=== PATIENT | female | born 1965 | race Two or more races ===

== ENCOUNTER → 2017-02-19 | Outpatient (CLI) | payer BC ==
[~2017-02-19] MED LIST: PIRO-23 PO
[2017-02-19 12:34] LABS: Basophils # (auto) 0 uL; Basophils % (auto) 0.7 % (0.0-2.0); Eosinophils # (auto) 0.1 uL; Eosinophils % (auto) 2.9 % (0.0-7.0); Hematocrit 42.6 % (36.0-46.0); Hemoglobin 14.4 g/dL (12.2-16.2); Lymphocytes # (auto) 1.2 uL; Lymphocytes % (auto) 26.3 % (10.0-50.0); Mean Corpuscular Hemoglobin 30.5 pg (28.0-32.0); Mean Corpuscular Hgb Conc. 33.8 g/dL (32.0-36.0); Mean Platelet Volume 8.7 fL (7.4-10.4); Monocytes # (auto) 0.6 uL; Monocytes % (auto) 14.6 % (0.0-12.0); Neutrophils # (auto) 2.5 uL; Neutrophils % (auto) 55.5 % (37.0-80.0); Platelet Count (auto) 225 10^3/uL (140-450); Red Cell Distribution Width 12.9 % (11.6-16.0); White Blood Cell 4.4 10^3/uL (4.4-10.8)
[2017-02-19 13:05] LABS: Albumin 4.3 g/dL (3.4-5.0); Bilirubin, Total 0.5 mg/dL (0.2-1.0); Potassium 4.3 mmol/L (3.5-5.1); Total Protein 7.8 g/dL (6.4-8.2)
[2017-02-19 13:11] LABS: Urine Bilirubin Negative (Negative); Urine Blood Negative /uL (Negative); Urine Color Yellow (Yellow); Urine Glucose Normal (Normal); Urine Ketone Negative (Negative); Urine Mucus FEW (None Seen); Urine Nitrite Negative (Negative); Urine RBC <1 /hpf (0 - 4); Urine Squamous Epithelial Cell FEW /hpf (<5); Urine Urobilinogen Normal (Negative); Urine pH 5.5 (5.0-8.0)
== END | disposition home or self-care (01) ==
LOC: LAB 11:50
DX: Z83.3 Family history of diabetes mellitus (principal); K63.5 Polyp of colon; Z11.59 Encounter for screening for other viral diseases
CPT/HCPCS: 36415; 80053; 80061; 81001; 83036; 84443; 85025; 86704; 86706; 86708; 86803; 87340

== ENCOUNTER → 2017-02-25 | Outpatient (CLI) | payer BC | END | disposition home or self-care (01) | LOC: LAB 13:50 | DX: Z85.3 Personal history of malignant neoplasm of breast (principal); K63.5 Polyp of colon; Z83.3 Family history of diabetes mellitus; Z11.59 Encounter for screening for other viral diseases | CPT/HCPCS: 82270 ==

== ENCOUNTER → 2017-09-03 | Outpatient (CLI) | payer BC ==
[2017-09-03 12:13] LABS: Urine Bilirubin Negative (Negative); Urine Blood Negative /uL (Negative); Urine Color Yellow (Yellow); Urine Glucose Normal (Normal); Urine Ketone Negative (Negative); Urine Mucus FEW (None Seen); Urine Nitrite Negative (Negative); Urine RBC 1 /hpf (0 - 4); Urine Squamous Epithelial Cell FEW /hpf (<5); Urine Urobilinogen Normal (Negative)
[2017-09-03 13:22] LABS: Basophils # (auto) 0 uL; Basophils % (auto) 0.8 % (0.0-2.0); Eosinophils # (auto) 0.1 uL; Eosinophils % (auto) 2.5 % (0.0-7.0); Hematocrit 45.9 % (36.0-46.0); Hemoglobin 15.7 g/dL (12.2-16.2); Lymphocytes # (auto) 1.9 uL; Lymphocytes % (auto) 32.3 % (10.0-50.0); Mean Corpuscular Hgb Conc. 34.1 g/dL (32.0-36.0); Mean Corpuscular Volume 90.7 fL (80.0-100.0); Mean Platelet Volume 8.2 fL (6.9-10.8); Monocytes # (auto) 0.4 uL; Monocytes % (auto) 7.7 % (0.0-12.0); Neutrophils # (auto) 3.3 uL; Neutrophils % (auto) 56.7 % (37.0-80.0); Platelet Count (auto) 230 10^3/uL (140-450); Red Cell Distribution Width 12.3 % (11.8-14.3); White Blood Cell 5.8 10^3/uL (4.4-10.8)
[2017-09-03 16:08] LABS: Albumin 4.6 g/dL (3.4-5.0); BUN/Creatinine Ratio 22.7; Bilirubin, Total 0.8 mg/dL (0.2-1.0); Calcium 9.4 mg/dL (8.5-10.1); Potassium 3.9 mmol/L (3.5-5.1)
[2017-09-03 16:46] LABS: Temperature: 23.1 C (20.0-25.0)
== END | disposition home or self-care (01) ==
LOC: LAB 11:25
PROVIDERS: ATTEND Nurse Practitioner
DX: E78.5 Hyperlipidemia, unspecified (principal); Z79.899 Other long term (current) drug therapy
CPT/HCPCS: 36415; 80053; 80061; 81001; 82306; 82607; 82728; 82746; 83036; 85025; 86431

== ENCOUNTER → 2017-10-29 | Outpatient (CLI) | payer BC ==
[2017-10-29 15:58] LABS: Basophils # (auto) 0 uL; Basophils % (auto) 0.5 % (0.0-2.0); Eosinophils # (auto) 0.1 uL; Eosinophils % (auto) 2.3 % (0.0-7.0); Hematocrit 41.6 % (36.0-46.0); Hemoglobin 14.5 g/dL (12.2-16.2); Lymphocytes # (auto) 1.4 uL; Lymphocytes % (auto) 23.9 % (10.0-50.0); Mean Corpuscular Hemoglobin 31.5 pg (28.0-32.0); Mean Corpuscular Hgb Conc. 34.8 g/dL (32.0-36.0); Mean Corpuscular Volume 90.5 fL (80.0-100.0); Mean Platelet Volume 8.2 fL (6.9-10.8); Monocytes # (auto) 0.6 uL; Monocytes % (auto) 9.4 % (0.0-12.0); Neutrophils # (auto) 3.8 uL; Neutrophils % (auto) 63.9 % (37.0-80.0); Platelet Count (auto) 191 10^3/uL (140-450); Red Cell Distribution Width 12.5 % (11.8-14.3); White Blood Cell 5.9 10^3/uL (4.4-10.8)
[2017-10-29 16:07] LABS: Urine Bilirubin Negative (Negative); Urine Blood Negative /uL (Negative); Urine Color Yellow (Yellow); Urine Glucose Normal (Normal); Urine Ketone Negative (Negative); Urine Nitrite Negative (Negative); Urine RBC <1 /hpf (0 - 4); Urine Urobilinogen Normal (Negative); Urine pH 5.5 (5.0-8.0)
[2017-10-29 16:25] LABS: Albumin 4.2 g/dL (3.4-5.0); BUN/Creatinine Ratio 33.9; Bilirubin, Total 0.4 mg/dL (0.2-1.0); Calcium 8.8 mg/dL (8.5-10.1); Potassium 3.8 mmol/L (3.5-5.1); Total Protein 7.5 g/dL (6.4-8.2)
== END | disposition home or self-care (01) ==
LOC: LAB 14:56
PROVIDERS: ATTEND Nurse Practitioner
DX: M79.1 Myalgia (principal); M54.5 Low back pain
CPT/HCPCS: 36415; 80053; 81001; 82306; 84439; 84443; 84481; 85025; 85652; 86038; 86141

== ENCOUNTER → 2018-02-08 | Outpatient (CLI) | payer BC ==
[2018-02-08 14:38] LABS: % Iron Saturation 22.2 % (15-50)
== END | disposition home or self-care (01) ==
LOC: LAB 12:28
PROVIDERS: ATTEND Psychiatry & Neurology Neurology
DX: E61.1 Iron deficiency (principal)
CPT/HCPCS: 83540; 83550

== ENCOUNTER → 2018-03-28 | Outpatient (CLI) | payer BC ==
[2018-03-28 13:33] LABS: Albumin 4.4 g/dL (3.4-5.0); Bilirubin, Direct 0.2 mg/dL (0-0.2); Bilirubin, Total 0.7 mg/dL (0.2-1.0); Total Protein 7.5 g/dL (6.4-8.2)
== END | disposition home or self-care (01) ==
LOC: LAB 12:36
PROVIDERS: ATTEND Internal Medicine Gastroenterology
DX: R74.8 Abnormal levels of other serum enzymes (principal); E78.5 Hyperlipidemia, unspecified; Z85.3 Personal history of malignant neoplasm of breast; Z79.899 Other long term (current) drug therapy
CPT/HCPCS: 36415; 80076

== ENCOUNTER → 2018-05-23 | Outpatient (CLI) | payer BC ==
[2018-05-23 12:17] LABS: Follicle Stimulating Hormone 109.3 IU/L (SEE BELOW); Hepatitis B Surface Antibody Positive; Leuteinizing Hormone 51.9 IU/L
[2018-05-23 12:55] LABS: Hepatitis A Total Antibody Positive
[2018-05-23 13:46] LABS: Hepatitis B Surface Antigen Negative (Negative); Hepatitis C Antibody Negative (Negative)
[2018-05-23 14:10] LABS: Hepatitis B Core Total AB Negative
[2018-05-24 04:07] LABS: RPR Non Reactive (Non Reactive)
== END | disposition home or self-care (01) ==
LOC: LAB 10:49
PROVIDERS: ATTEND Family Medicine
DX: Z11.3 Encounter for screening for infections with a predominantly sexual mode of transmission (principal); K76.0 Fatty (change of) liver, not elsewhere classified; R74.8 Abnormal levels of other serum enzymes; E78.5 Hyperlipidemia, unspecified; N95.1 Menopausal and female climacteric states; Z85.3 Personal history of malignant neoplasm of breast; Z79.899 Other long term (current) drug therapy; Z20.2 Contact with and (suspected) exposure to infections with a predominantly sexual mode of transmission
CPT/HCPCS: 36415; 82670; 83001; 83002; 86592; 86695; 86696; 86703; 86704; 86706; 86708; 86803; 87340

== ENCOUNTER 2018-05-29 21:41 | Emergency (ER) | payer BC ==
[~2018-05-29] VITALS: Ht 152.4 cm; Wt 54.4 kg
[2018-05-29 22:03] VITALS: BP 131/52
[2018-05-29 22:43] LABS: Basophils # (auto) 0.1 uL; Eosinophils # (auto) 0.2 uL; Eosinophils % (auto) 2.7 % (0.0-7.0); Hematocrit 40.4 % (36.0-46.0); Hemoglobin 13.9 g/dL (12.2-16.2); Lymphocytes # (auto) 2.1 uL; Lymphocytes % (auto) 37.2 % (10.0-50.0); Mean Corpuscular Hemoglobin 31.1 pg (28.0-32.0); Mean Corpuscular Hgb Conc. 34.4 g/dL (32.0-36.0); Mean Corpuscular Volume 90.5 fL (80.0-100.0); Monocytes # (auto) 0.6 uL; Monocytes % (auto) 10.6 % (0.0-12.0); Neutrophils # (auto) 2.6 uL; Neutrophils % (auto) 47.5 % (37.0-80.0); Platelet Count (auto) 221 10^3/uL (140-450); Red Blood Cells 4.46 10^6/uL (4.0-5.20); Red Cell Distribution Width 12.9 % (11.8-14.3); White Blood Cell 5.6 10^3/uL (4.4-10.8)
[2018-05-29 22:48] LABS: Urine Bacteria NONE SEEN /hpf (None Seen); Urine Blood Negative /uL (Negative); Urine Mucus FEW (None Seen); Urine Specific Gravity 1.031 (1.001-1.035); Urine WBC 5 /hpf (0 - 5)
[2018-05-29 22:58] LABS: Partial Thromboplastin Time 26.1 sec (23.78-33.04); Prothrombin Time 10.7 sec (9.27-12.13)
[2018-05-29 23:06] LABS: Albumin 3.9 g/dL (3.4-5.0); BUN/Creatinine Ratio 34.4; Bilirubin, Total 0.3 mg/dL (0.2-1.0); Calcium 8.5 mg/dL (8.5-10.1); Potassium 3.6 mmol/L (3.5-5.1); Total Protein 6.9 g/dL (6.4-8.2)
== END 2018-05-30 01:00 | disposition left against medical advice (07) ==
LOC: ER 21:41
DX: R10.9 Unspecified abdominal pain (principal); Z53.21 Procedure and treatment not carried out due to patient leaving prior to being seen by health care provider
CPT/HCPCS: 36415; 74176; 80053; 81001; 82150; 83690; 85025; 85610; 85730

== ENCOUNTER → 2018-08-03 | Outpatient (CLI) | payer BC ==
[2018-08-04 06:05] LABS: RPR Non Reactive (Non Reactive)
[2018-08-04 10:03] LABS: Hepatitis B Surface Antibody Positive
[2018-08-04 10:41] LABS: Hepatitis A Total Antibody Positive
[2018-08-04 11:14] LABS: Hepatitis B Core Total AB Negative; Hepatitis B Surface Antigen Negative (Negative)
[2018-08-04 11:15] LABS: Hepatitis C Antibody Positive (Negative)
== END | disposition home or self-care (01) ==
LOC: LAB 09:20
PROVIDERS: ATTEND Physician Assistant
DX: Z11.3 Encounter for screening for infections with a predominantly sexual mode of transmission (principal)
CPT/HCPCS: 36415; 86592; 86703; 86704; 86706; 86708; 86803; 87340

== ENCOUNTER → 2018-08-06 | Emergency (ER) | payer BC | END | disposition left against medical advice (07) | LOC: ER 01:18 | DX: R52 Pain, unspecified (principal); Z53.21 Procedure and treatment not carried out due to patient leaving prior to being seen by health care provider ==

== ENCOUNTER → 2018-08-09 | Outpatient (CLI) | payer BC | END | disposition home or self-care (01) | LOC: LAB 10:48 | PROVIDERS: ATTEND Nurse Practitioner | DX: Z11.3 Encounter for screening for infections with a predominantly sexual mode of transmission (principal) | CPT/HCPCS: 86703; 87522 ==

== ENCOUNTER → 2018-11-15 | Outpatient (CLI) | payer BC ==
[2018-11-15 11:02] LABS: Albumin 4.5 g/dL (3.4-5.0); Bilirubin, Direct 0.2 mg/dL (0-0.2)
[2018-11-15 11:04] LABS: % Iron Saturation 45.8 % (15-50)
[2018-11-15 11:05] LABS: Bilirubin, Total 0.5 mg/dL (0.2-1.0); Total Protein 7.7 g/dL (6.4-8.2)
== END | disposition home or self-care (01) ==
LOC: LAB 09:53
PROVIDERS: ATTEND Internal Medicine Gastroenterology
DX: K92.1 Melena (principal)
CPT/HCPCS: 36415; 80076; 82390; 83540; 83550; 86225

== ENCOUNTER → 2018-12-22 | Outpatient (CLI) | payer BC ==
[2018-12-22 10:31] LABS: Basophils # (auto) 0 uL; Basophils % (auto) 0.4 % (0.0-2.0); Eosinophils # (auto) 0.2 uL; Eosinophils % (auto) 2.7 % (0.0-7.0); Hematocrit 44.6 % (36.0-46.0); Hemoglobin 15.3 g/dL (12.2-16.2); Lymphocytes # (auto) 1.2 uL; Lymphocytes % (auto) 20.6 % (10.0-50.0); Mean Corpuscular Hemoglobin 31.5 pg (28.0-32.0); Mean Corpuscular Hgb Conc. 34.2 g/dL (32.0-36.0); Monocytes # (auto) 0.4 uL; Monocytes % (auto) 7.4 % (0.0-12.0); Neutrophils % (auto) 68.9 % (37.0-80.0); Platelet Count (auto) 183 10^3/uL (140-450); Red Blood Cells 4.85 10^6/uL (4.0-5.20); Red Cell Distribution Width 12.6 % (11.8-14.3); White Blood Cell 5.8 10^3/uL (4.4-10.8)
[2018-12-22 10:47] LABS: Urine Bacteria NONE SEEN /hpf (None Seen); Urine Blood TRACE /uL (Negative); Urine Mucus FEW (None Seen); Urine Specific Gravity 1.028 (1.001-1.035); Urine WBC 1 /hpf (0 - 5)
[2018-12-22 11:27] LABS: Albumin 4.3 g/dL (3.4-5.0); Anion Gap 4 (5-15); Blood Urea Nitrogen 32 mg/dL (7-18); Calcium 9.1 mg/dL (8.5-10.1); Carbon Dioxide 28 mmol/L (21-32); Chloride 108 mmol/L (98-107); Glucose 101 mg/dL (74-106); Potassium 4.2 mmol/L (3.5-5.1); Sodium 140 mmol/L (136-145)
[2018-12-22 11:31] LABS: Alanine Aminotransferase 38 U/L (13-56); Alkaline Phosphatase 105 U/L (45-117); Aspartate Aminotransferase 20 U/L (15-37); Bilirubin, Total 0.4 mg/dL (0.2-1.0); Cholesterol 176 mg/dL (< 200); GFR African American > 60 mL/min; GFR Non-African American > 60 mL/min; HDL Cholesterol 37 mg/dL (40-59); LDL Cholesterol 132 mg/dL (< 100); Total Protein 7.5 g/dL (6.4-8.2); Triglycerides 90 mg/dL (< 150)
== END | disposition home or self-care (01) ==
LOC: LAB 09:56
PROVIDERS: ATTEND Nurse Practitioner
DX: E78.5 Hyperlipidemia, unspecified (principal)
CPT/HCPCS: 36415; 80053; 80061; 81001; 82306; 83036; 84443; 85025

== ENCOUNTER → 2019-12-22 | Outpatient (CLI) | payer BC ==
[2019-12-22 09:44] LABS: Basophils # (auto) 0 uL; Basophils % (auto) 0.6 % (0.0-2.0); Eosinophils # (auto) 0.2 uL; Eosinophils % (auto) 2.4 % (0.0-7.0); Hematocrit 42.7 % (36.0-46.0); Hemoglobin 14.6 g/dL (12.2-16.2); Lymphocytes # (auto) 1.5 uL; Mean Corpuscular Hemoglobin 30.9 pg (28.0-32.0); Mean Corpuscular Hgb Conc. 34.2 g/dL (32.0-36.0); Mean Corpuscular Volume 90.4 fL (80.0-100.0); Monocytes # (auto) 0.5 uL; Neutrophils # (auto) 4.5 uL; Platelet Count (auto) 241 10^3/uL (140-450); Red Blood Cells 4.72 10^6/uL (4.0-5.20); Red Cell Distribution Width 12.5 % (11.8-14.3); White Blood Cell 6.7 10^3/uL (4.4-10.8)
[2019-12-22 09:47] LABS: Urine Bacteria NONE SEEN /hpf (None Seen); Urine Blood Negative /uL (Negative); Urine Mucus FEW (None Seen); Urine Specific Gravity 1.024 (1.001-1.035); Urine WBC 24 /hpf (0 - 5)
[2019-12-22 10:06] LABS: Albumin 3.8 g/dL (3.4-5.0); Calcium 9.2 mg/dL (8.5-10.1); Potassium 4.5 mmol/L (3.5-5.1)
[2019-12-22 10:16] LABS: BUN/Creatinine Ratio 34.8; Bilirubin, Total 0.4 mg/dL (0.2-1.0); Total Protein 7.5 g/dL (6.4-8.2)
== END | disposition home or self-care (01) ==
LOC: LAB 09:17
PROVIDERS: ATTEND Nurse Practitioner
DX: E78.5 Hyperlipidemia, unspecified (principal)
CPT/HCPCS: 36415; 80053; 80061; 81001; 84443; 85025

== ENCOUNTER → 2020-06-17 | Outpatient (CLI) | payer BC | END | disposition home or self-care (01) | LOC: LAB 14:43 | PROVIDERS: ATTEND Specialist | DX: N93.9 Abnormal uterine and vaginal bleeding, unspecified (principal) | CPT/HCPCS: 87086 ==

== ENCOUNTER → 2020-08-23 | Outpatient (CLI) | payer BC ==
[2020-08-23 13:33] LABS: Urine Bacteria NONE SEEN /hpf (None Seen); Urine Blood Negative /uL (Negative); Urine Specific Gravity 1.001 (1.001-1.035); Urine WBC <1 /hpf (0 - 5)
== END | disposition home or self-care (01) ==
LOC: LAB 13:07
PROVIDERS: ATTEND Nurse Practitioner
DX: N39.0 Urinary tract infection, site not specified (principal)
CPT/HCPCS: 81001; 87086

== ENCOUNTER → 2020-09-02 | Outpatient (CLI) | payer BC | END | disposition home or self-care (01) | LOC: LAB 17:38 | PROVIDERS: ATTEND Urology | DX: N39.0 Urinary tract infection, site not specified (principal) | CPT/HCPCS: 87086; 87088; 87186 ==

== ENCOUNTER → 2021-11-13 | Outpatient (CLI) | payer BC ==
[~2021-11-13] MED LIST changes: -PIRO-23 PO; +PIRO20CA PO
[2021-11-13 10:11] LABS: Basophils # (auto) 0 10 ^3/uL (0-0.2); Basophils % (auto) 0.7 % (0.0-2.0); Eosinophils # (auto) 0.2 10 ^3/uL (0-0.8); Eosinophils % (auto) 3.2 % (0.0-7.0); Hematocrit 42.6 % (36.0-46.0); Hemoglobin 14.3 g/dL (12.2-16.2); Lymphocytes # (auto) 1.4 10 ^3/uL (0.4-5.4); Lymphocytes % (auto) 27.9 % (10.0-50.0); Mean Corpuscular Hemoglobin 30.6 pg (28.0-32.0); Mean Corpuscular Hgb Conc. 33.7 g/dL (32.0-36.0); Mean Corpuscular Volume 90.8 fL (80.0-100.0); Monocytes # (auto) 0.5 10 ^3/uL (0-1.3); Monocytes % (auto) 9.1 % (0.0-12.0); Neutrophils # (auto) 2.9 10 ^3/uL (1.6-8.6); Neutrophils % (auto) 59.1 % (37.0-80.0); Nucleated Red Blood Cells % 0.1 %; Red Blood Cells 4.69 10^6/uL (4.0-5.20); Red Cell Distribution Width 12.5 % (11.8-14.3)
[2021-11-13 10:21] LABS: Urine Bacteria NONE SEEN /hpf (None Seen); Urine Blood Negative /uL (Negative); Urine Mucus FEW (None Seen); Urine Specific Gravity 1.024 (1.001-1.035); Urine WBC 11 /hpf (0 - 5)
[2021-11-13 11:40] LABS: Albumin 4.5 g/dL (3.4-5.0); BUN/Creatinine Ratio 34.8; Bilirubin, Total 0.7 mg/dL (0.2-1.0); Calcium 9.2 mg/dL (8.5-10.1); Total Protein 7.4 g/dL (6.4-8.2)
== END | disposition home or self-care (01) ==
LOC: LAB 09:47
PROVIDERS: ATTEND Student in an Organized Health Care Education/Training Program
DX: K76.0 Fatty (change of) liver, not elsewhere classified (principal); R76.8 Other specified abnormal immunological findings in serum; R73.9 Hyperglycemia, unspecified; I10 Essential (primary) hypertension; M25.50 Pain in unspecified joint
CPT/HCPCS: 36415; 80053; 80061; 81001; 83001; 83036; 84443; 85025; 86431; 86803

== ENCOUNTER 2022-06-19 12:02 | Day surgery (SDC) | payer BC ==
[2022-06-17 10:03] LABS: Albumin 4.1 g/dL (3.4-5.0); Calcium 9.1 mg/dL (8.5-10.1); Potassium 4.3 mmol/L (3.5-5.1)
[2022-06-17 10:04] LABS: Basophils # (auto) 0 10 ^3/uL (0-0.2); Basophils % (auto) 0.9 % (0.0-2.0); Eosinophils # (auto) 0.2 10 ^3/uL (0-0.8); Eosinophils % (auto) 3.4 % (0.0-7.0); Lymphocytes # (auto) 1.5 10 ^3/uL (0.4-5.4); Mean Corpuscular Hemoglobin 30.2 pg (28.0-32.0); Mean Corpuscular Hgb Conc. 33.3 g/dL (32.0-36.0); Mean Corpuscular Volume 90.9 fL (80.0-100.0); Monocytes # (auto) 0.5 10 ^3/uL (0-1.3); Monocytes % (auto) 9.6 % (0.0-12.0); Neutrophils # (auto) 3.3 10 ^3/uL (1.6-8.6); Neutrophils % (auto) 59.1 % (37.0-80.0); Red Blood Cells 4.62 10^6/uL (4.0-5.20); Red Cell Distribution Width 12.8 % (11.8-14.3); White Blood Cell 5.5 10^3/uL (4.4-10.8)
[2022-06-17 10:07] LABS: Bilirubin, Total 0.4 mg/dL (0.2-1.0); Total Protein 7.4 g/dL (6.4-8.2)
[2022-06-17 10:18] LABS: INR 0.96 (0.9-1.15); Partial Thromboplastin Time 26.6 sec (24.6-33.4)
[~2022-06-19] VITALS: Ht 152.4 cm; Wt 53.1 kg
[2022-06-19] MEDS ORDERED: SODIUM CHLORIDE LOCK 10 ML ONE (12:29)
[2022-06-19] MEDS ORDERED: LIDOCAINE VISCOUS 2% 15ML UD ONE (12:29)
[2022-06-19] MEDS ORDERED: MIDAZOLAM HCL 5 MG/ML-1ML VIAL ONE (12:29)
[2022-06-19] MEDS ORDERED: diphenhdrAMINE HCL 50 MG/1 ML VL ONE (12:30)
[2022-06-19] MEDS ORDERED: fentaNYL CITRATE 100 MCG/2 ML VL ONE ×2 (12:30→13:37)
[2022-06-19] MEDS ORDERED: MEPERIDINE HCL (25 MG/ML) 1ML VIAL ONE (13:36)
[2022-06-19] MEDS ORDERED: MIDAZOLAM HCL 2MG/2ML 2ml VIAL (1mg/ml) ONE (13:37)
[2022-06-19] MEDS ORDERED: DexAMETHasone SOD PHOS 10MG/1ML VIAL INJ ONE (13:46)
[2022-06-19] MEDS ORDERED: PROPOFOL 10 MG/ML 20 ML IV ONE (13:52)
[2022-06-19 15:01] VITALS: BP 113/64
== END 2022-06-19 15:30 | disposition home or self-care (01) ==
LOC: GI 12:02
PROVIDERS: ATTEND Internal Medicine Gastroenterology
DX: Z12.11 Encounter for screening for malignant neoplasm of colon (principal); D12.3 Benign neoplasm of transverse colon; D12.5 Benign neoplasm of sigmoid colon; K64.8 Other hemorrhoids; K29.50 Unspecified chronic gastritis without bleeding; K29.80 Duodenitis without bleeding; K31.89 Other diseases of stomach and duodenum; G89.29 Other chronic pain; Z86.010 Personal history of colon polyps; Z80.0 Family history of malignant neoplasm of digestive organs; Z98.891 History of uterine scar from previous surgery; Z98.890 Other specified postprocedural states; Z79.899 Other long term (current) drug therapy; Z88.0 Allergy status to penicillin; Z88.2 Allergy status to sulfonamides; Z20.822 Contact with and (suspected) exposure to COVID-19
CPT/HCPCS: 36415; 43239; 45380; 80053; 85025; 85610; 85730; J1100; J2175; J2250; J2704; J3010; J7030; U0003; 99152

== ENCOUNTER → 2023-10-15 | Outpatient (CLI) | payer BC ==
[2023-10-15 13:58] LABS: Basophils # (auto) 0 10 ^3/uL (0-0.2); Basophils % (auto) 0.8 % (0.0-2.0); Eosinophils # (auto) 0.2 10 ^3/uL (0-0.8); Eosinophils % (auto) 2.6 % (0.0-7.0); Hematocrit 42.5 % (36.0-46.0); Hemoglobin 14.5 g/dL (12.2-16.2); Lymphocytes # (auto) 1.7 10 ^3/uL (0.4-5.4); Lymphocytes % (auto) 28.2 % (10.0-50.0); Mean Corpuscular Hemoglobin 30.6 pg (28.0-32.0); Mean Corpuscular Hgb Conc. 34.1 g/dL (32.0-36.0); Mean Corpuscular Volume 89.6 fL (80.0-100.0); Monocytes # (auto) 0.4 10 ^3/uL (0-1.3); Monocytes % (auto) 7.2 % (0.0-12.0); Neutrophils # (auto) 3.6 10 ^3/uL (1.6-8.6); Neutrophils % (auto) 61.2 % (37.0-80.0); Nucleated Red Blood Cells % 0.2 %; Red Blood Cells 4.75 10^6/uL (4.0-5.20); Red Cell Distribution Width 12.8 % (11.8-14.3); White Blood Cell 5.9 10^3/uL (4.4-10.8)
[2023-10-15 14:02] LABS: Urine Bacteria NONE SEEN /hpf (None Seen); Urine Blood Negative /uL (Negative); Urine Clarity Clear (Clear); Urine Color Yellow (Yellow); Urine Protein, UAD Negative (Negative); Urine Specific Gravity 1.018 (1.001-1.035); Urine Urobilinogen Normal (Negative); Urine WBC 2 /hpf (0 - 5)
[2023-10-15 14:40] LABS: Alanine Aminotransferase 49 U/L (7-40); Albumin 4.6 g/dL (3.2-4.8); Alkaline Phosphatase 109 U/L (46-116); Anion Gap 5 (5-15); Aspartate Aminotransferase 24 U/L (13-40); BUN/Creatinine Ratio 14.8 (10.0-20.0); Blood Urea Nitrogen 12 mg/dL (9-23); Calcium 9.4 mg/dL (8.5-10.1); Carbon Dioxide 30 mmol/L (20-30); Chloride 106 mmol/L (98-107); Glucose 123 mg/dL (74-106); LDL Cholesterol 124 mg/dL (< 100); Potassium 3.9 mmol/L (3.5-5.1); Sodium 141 mmol/L (136-145); Triglycerides 107 mg/dL (< 150)
[2023-10-15 14:41] LABS: Bilirubin, Total 0.7 mg/dL (0.2-1.0); Cholesterol 164 mg/dL (< 200); HDL Cholesterol 38 mg/dL (40-59)
[2023-10-15 14:42] LABS: Free T4 (Free Thyroxine) 1.01 ng/dL (0.89-1.76)
== END | disposition home or self-care (01) ==
LOC: LAB 13:34
DX: Z00.01 Encounter for general adult medical examination with abnormal findings (principal); C65.9 Malignant neoplasm of unspecified renal pelvis; R74.8 Abnormal levels of other serum enzymes
CPT/HCPCS: 36415; 80053; 80061; 81001; 82607; 83036; 84439; 84443; 85025

== ENCOUNTER → 2024-02-11 | Outpatient (CLI) | payer BC ==
[2024-02-11 12:50] LABS: Basophils # (auto) 0 10 ^3/uL (0-0.2); Basophils % (auto) 0.7 % (0.0-2.0); Eosinophils # (auto) 0.2 10 ^3/uL (0-0.8); Eosinophils % (auto) 2.7 % (0.0-7.0); Hematocrit 42.6 % (36.0-46.0); Hemoglobin 14.5 g/dL (12.2-16.2); Lymphocytes # (auto) 1.4 10 ^3/uL (0.4-5.4); Lymphocytes % (auto) 23.1 % (10.0-50.0); Mean Corpuscular Hemoglobin 30.9 pg (28.0-32.0); Mean Corpuscular Hgb Conc. 34.1 g/dL (32.0-36.0); Mean Corpuscular Volume 90.5 fL (80.0-100.0); Monocytes # (auto) 0.4 10 ^3/uL (0-1.3); Monocytes % (auto) 6.9 % (0.0-12.0); Neutrophils % (auto) 66.6 % (37.0-80.0); Nucleated Red Blood Cells % 0.1 %; Red Blood Cells 4.71 10^6/uL (4.0-5.20); Red Cell Distribution Width 13.1 % (11.8-14.3); White Blood Cell 6.1 10^3/uL (4.4-10.8)
[2024-02-11 12:59] LABS: Urine Bacteria FEW /hpf (None Seen); Urine Blood Negative /uL (Negative); Urine Clarity Clear (Clear); Urine Color Yellow (Yellow); Urine Mucus FEW (None Seen); Urine Protein, UAD Negative (Negative); Urine Specific Gravity 1.024 (1.001-1.035); Urine Urobilinogen Normal (Negative); Urine WBC 12 /hpf (0 - 5)
[2024-02-11 13:13] LABS: Alanine Aminotransferase 49 U/L (7-40); Albumin 4.7 g/dL (3.2-4.8); Alkaline Phosphatase 122 U/L (46-116); Anion Gap 4 (5-15); Aspartate Aminotransferase 26 U/L (13-40); BUN/Creatinine Ratio 22.7 (10.0-20.0); Bilirubin, Total 0.7 mg/dL (0.2-1.0); Blood Urea Nitrogen 17 mg/dL (9-23); Calcium 9.7 mg/dL (8.5-10.1); Carbon Dioxide 30 mmol/L (20-30); Chloride 107 mmol/L (98-107); Cholesterol 162 mg/dL (< 200); Glucose 99 mg/dL (74-106); HDL Cholesterol 45 mg/dL (40-59); LDL Cholesterol 123 mg/dL (< 100); Potassium 4.4 mmol/L (3.5-5.1); Sodium 141 mmol/L (136-145); Triglycerides 54 mg/dL (< 150)
[2024-02-12 08:06] LABS: Rheumatoid Arthritis Factor <10.0 IU/mL (<14.0)
[2024-02-12 13:06] LABS: Anti-Nuclear Antibody Direct Negative (Negative)
== END | disposition home or self-care (01) ==
LOC: LAB 12:11
PROVIDERS: ATTEND Student in an Organized Health Care Education/Training Program
DX: R03.0 Elevated blood-pressure reading, without diagnosis of hypertension (principal); R73.9 Hyperglycemia, unspecified; R76.8 Other specified abnormal immunological findings in serum; M25.511 Pain in right shoulder
CPT/HCPCS: 36415; 80053; 80061; 81001; 84443; 85025; 86038; 86431

== ENCOUNTER → 2024-07-27 | Outpatient (CLI) | payer BC | END | disposition home or self-care (01) | LOC: XYW 08:46 | PROVIDERS: ATTEND Student in an Organized Health Care Education/Training Program | DX: I51.89 Other ill-defined heart diseases (principal); R07.9 Chest pain, unspecified | CPT/HCPCS: 93306 ==

== ENCOUNTER → 2025-01-08 | Outpatient (CLI) | payer BC ==
[2025-01-08 16:04] LABS: Urine Bacteria None Seen /hpf (None Seen)
[2025-01-08 16:21] LABS: Urine Blood Negative /uL (Negative); Urine Clarity Clear (Clear); Urine Color Yellow (Yellow); Urine Hyaline Cast FEW /lpf (0 - 2); Urine Mucus FEW (None Seen); Urine Protein, UAD Negative (Negative); Urine Specific Gravity 1.026 (1.001-1.035); Urine Squamous Epithelial Cell FEW /hpf (<5); Urine Urobilinogen Normal (Negative); Urine WBC < 1 /HPF (0-5); Urine pH 5.5 (5.0-9.0)
[2025-01-09 08:06] LABS: HSV 1 IgG Antibody Reactive (Non Reactive); HSV 2 IgG Antibody Non Reactive (Non Reactive); RPR Non Reactive (Non Reactive)
[2025-01-09 12:06] LABS: Chlamydia Trachomatis, NAA Negative (Negative); Neisseria gonorrhoeae, NAA Negative (Negative)
== END | disposition home or self-care (01) ==
LOC: LAB 15:23
PROVIDERS: ATTEND Nurse Practitioner
DX: Z11.3 Encounter for screening for infections with a predominantly sexual mode of transmission (principal); Z20.2 Contact with and (suspected) exposure to infections with a predominantly sexual mode of transmission
CPT/HCPCS: 81001; 86592; 86695; 86696; 86703; 87086

== ENCOUNTER 2025-06-29 03:32 | Inpatient (IN) | payer BC, OTHER ==
[~2025-06-29] VITALS: Ht 152.4 cm; Wt 56.4 kg
--- NOTE | 2025-06-29 04:02 | ED.PDOC ---
GI ASSESSMENT HPI Comments 59 year old female presents to the ED for the c/c of 02/05 intermittent Sharp Suprapubic ABD pain w/ associated N/. Pt states that her pain has been onset for the past 2x weeks with no alleviating factors. Pt notes that she was at an Urgent Care, but was advised to present to the ED for further evaluation. Pt reports on V/ the first night, but denies any V/ now. Pt denies and /D, Dysuria, CADET, Chest pain, Weakness, or any other associated Symptoms or modifiers at this point in time. Chief Complaint: Abdominal Pain Time Seen by MD: 03:57 Primary Care Provider: PARTH Reviewed Notes: Nurses Notes, Medications, Allergies Allergies: Coded Allergies: Magnesium (Verified Allergy, Intermediate, 08/18/24) Penicillins (Verified Allergy, Unknown, 08/18/24) Sulfa Antibiotics (Verified Allergy, Unknown, 08/18/24) Home Meds No Active Prescriptions or Reported Meds Information Source: Patient Mode of Arrival: Ambulatory Timing: Weeks Duration: Intermittent Prehospital treatment: None Quality: Sharp Vomitus: None Stool: Normal Severity: Moderate Recent: None Recent Hx of: None Pain Location: Suprapubic Modifying Factors: Exertion, Movement Associated sign and symptoms: Nausea, Abdominal Pain Past Medical History PAST MEDICAL HISTORY: Denies Surgical History: Family History Family History: No family hx of Cancer, No family hx of DM Social History Smoker: Non-Smoker Alcohol: Occasionally Drugs: Denies Drug Use Lives In: Home Constitutional: denies: chills, diaphoresis, fatigue, fever, malaise, sweats, weakness, others EENTM: denies: blurred vision, double vision, ear bleeding, ear discharge, ear drainage, ear pain, ear ringing, eye pain, eye redness, hearing loss, mouth pain, mouth swelling, nasal discharge, nose bleeding, nose congestion, nose pain, photophobia, tearing, throat pain, throat swelling, voice changes, others Respiratory: denies: cough, hemoptysis, orthopnea, SOB at rest, shortness of breath, SOB with excertion, stridor, wheezing, others Cardiovascular: denies: chest pain, dizzy spells, diaphoresis, Dyspnea on exertion, edema, irregular heart beat, left arm pain, lightheadedness, palpitations, PND, syncope, others Gastrointestinal: reports: abdominal pain, nausea; denies: abdomen distended, blood streaked bowels, constipated, diarrhea, dysphagia, difficulty swallowing, hematemesis, melena, poor appetite, poor fluid intake, rectal bleeding, rectal pain, vomiting, others Genitourinary: denies: abnormal vagina bleeding, burning, dyspareunia, dysuria, flank pain, frequency, hematuria, incontinence, pain, , vagina discha rge, urgency, others Neurological: denies: dizziness, fainting, headache, left sided numbness, left sided weakness, numbness, paresthesia, pre-existing deficit, right sided numbness, right sided weakness, seizure, speech problems, tingling, tremors, weakness, others Musculoskeletal: denies: back pain, gout, joint pain, joint swelling, muscle pain, muscle stiffness, neck pain, others Integumetry: denies: bruises, change in color, change in hair/nails, dryness, laceration, lesions, lumps, rash, wounds, others Allergic/Immunocompromised: denies: Difficulty Healing, Frequent Infections, Hives, Itching, others Hematologic/Lymphatic: denies: anemia, blood clots, easy bleeding, easy bruising, swollen glands, others Endocrine: denies: excessive hunger, excessive sweating, excessive thirst, excessive urination, flushing, intolerance to cold, intolerance to heat, unexplained weight gain, unexplained weight loss, others Psychiatric: denies: anxiety, bipolar disorder, depression, hopeless, panic disorder, schizophrenia, sleepless, suicidal, others All Other Systems: Reviewed and Negative Physical Exam General Appearance: Mild Distress, Normal HEENT: Normal ENT Inspection, Pharynx Normal, TMs Normal Neck: Full Range of Motion, Non-Tender, Normal, Normal Inspection Respiratory: Chest Non-Tender, Lungs Clear, No Accessory Muscle Use, No Respiratory Distress, Normal Breath Sounds Cardiovascular: No Edema, No JVD, No Murmur, No Gallop, Normal Peripheral Pulses, Regular Rate/Rhythm Breast Exam: Deferred Gastrointestinal: Diffuse, No Pulsatile Mass, Normal Bowel Sounds, Soft, Suprapubic, Tenderness, Other (no gross abnormality, slight TTP to the Suprapubic region) Genitalia: Deferred Pelvic: Deferred Rectal: Deferred Extremities: No calf tenderness, Normal capillary refill, Normal inspection, Normal range of motion, Non-tender, No pedal edema Musculoskeletal : Apperance: Normal Neurologic: Alert, beeswax bleacher II-XII nml as Tested, No Motor Deficits, Normal Affect, Normal Mood, No Sensory Deficits Cerebellar Function: Normal Reflexes: Normal Skin: Dry, Normal Color, Warm Lymphatic: No Adenopathy Was a procedure done? Was a procedure done?: No GI differential Dx Differential Diagnosis: Appendicitis, Bowel Obstruction, Cholangitis, Cholecystitis, Constipation, Diverticular disease, Gastritis/PUD, G astroenteritis, Ischemic Bowel, Ovarian cyst/torsion, Pancreatitis, Trauma intraabdominal, Urinary Obstruction, Urolithiasis, Dehydration, Electrolyte Imbalance, Food Poisoning, , Bacterial, Parasitic, Ischemic Bowel, Mass, Anemia, Kidney Stone X-Ray, Labs, Meds, VS Vital Signs Date Time Temp Pulse Resp B/P (MAP) Pulse Ox O2 Delivery O2 Flow Rate FiO2 06/29/25 03:36 84 06/29/25 03:33 99.2 93 20 111/59 95 99.2 Lab Test 06/29/25 04:04 06/29/25 03:45 Range/Units White Blood Count 18.4 H 4.4-10.8 10^3/uL Red Blood Count 4.38 4.0-5.20 10^6/uL Hemoglobin 13.7 12.2-16.2 g/dL Hematocrit 38.2 36.0-46.0 % Mean Corpuscular Volume 87.1 80.0-100.0 fL Mean Corpuscular Hemoglobin 31.3 28.0-32.0 pg Mean Corpuscular Hemoglobin Concent 35.9 32.0-36.0 g/dL Red Cell Distribution Width 12.4 11.8-14.3 % Platelet Count 338 140-450 10^3/uL Mean Platelet Volume 7.1 6.9-10.8 fL Neutrophils (%) (Auto) 84.2 H 37.0-80.0 % Lymphocytes (%) (Auto) 7.4 L 10.0-50.0 % Monocytes (%) (Auto) 7.9 0.0-12.0 % Eosinophils (%) (Auto) 0.3 0.0-7.0 % Basophils (%) (Auto) 0.2 0.0-2.0 % Neutrophils # (Auto) 15.4 H 1.6-8.6 10 ^3/uL Lymphocytes # (Auto) 1.4 0.4-5.4 10 ^3/uL Monocytes # (Auto) 1.5 H 0-1.3 10 ^3/uL Eosinophils # (Auto) 0.1 0-0.8 10 ^3/uL Basophils # (Auto) 0 0-0.2 10 ^3/uL Nucleated Red Blood Cells 0.0 % Sodium Level 135 L 136-145 mmol/L Potassium Level 3.7 3.5-5.1 mmol/L Chloride Level 99 98-107 mmol/L Carbon Dioxide Level 26 20-31 mmol/L Anion Gap 10 5-15 Blood Urea Nitrogen 15 9-23 mg/dL Creatinine 0.79 0.550-1.02 mg/dL Glomerular Filtration Rate Calc 86 >90 mL/min BUN/Creatinine Ratio 19.0 10.0-20.0 Serum Glucose 122 H 74-106 mg/dL Calcium Level 9.6 8.7-10.4 mg/dL Total Bilirubin 1.2 H 0.2-1.0 mg/dL Aspartate Amino Transferase (AST) 40 13-40 U/L Alanine Aminotransferase (ALT) 49 H 7-40 U/L Alkaline Phosphatase 201 H 46-116 U/L Total Protein 7.4 5.7-8.2 g/dL Albumin 4.4 3.2-4.8 g/dL Lipase 41 12-53 U/L Urine Color Light-orange Yellow Urine Clarity Ex.turbid Clear Urine pH 6.0 5.0-9.0 Urine Specific [place] 1.024 1.001-1.035 Urine Protein 1+ H Negative Urine Ketones 1+ H Negative Urine Blood 1+ H Negative /uL Urine Nitrite Negative Negative Urine Bilirubin Negative Negative Urine Urobilinogen 2 H Negative mg/dL Urine Leukocyte Esterase 3+ Negative /uL Urine RBC 26 0 - 4 /hpf Urine Microscopic WBC 239 H 0-5 /HPF Urine Squamous Epithelial Cells Many <5 /hpf Urine Bacteria Few H None Seen /hpf Urine Hyaline Casts Few 0 - 2 /lpf Urine Mucus Moderate None Seen Urine Glucose Normal Normal mg/dL Time of 1ST Reevaluation: 04:28 Reevaluation 1ST: Unchanged Patient Education/Counseling: Diagnosis, Treatment, Need For Follow Up Family Education/Counseling: No Family Present SEPSIS Sepsis Screen Date sepsis recognized/suspect: Jun 29, 2025 Time Sepsis recognized/suspect: 033 Recent Procedure: No On Antibiotic Therapy: No Respiratory Rate >20: No Heart Rate >90: Yes Temp<36 C (96.8 F) or >38.3 C: No SBP <90 or MAP <65 mmHG: No New Acute Mental Status Change: No Is the patient on CPAP, BIPAP,: No Physician Orders Electrocardigram (06/29/25 03:35) Ct Ab Pel With Iv Con Only (06/29/25 03:54) Lactic Acid W/ Reflex Order (06/29/25 05:32) Blood Culture (06/29/25 05:32) Zosyn Extended Infusion (06/29/25 05:45) Vital Signs Date Time Temp Pulse Resp B/P (MAP) Pulse Ox O2 Delivery O2 Flow Rate FiO2 06/29/25 03:36 84 06/29/25 03:33 99.2 93 20 111/59 95 99.2 Laboratory Tests Test 06/29/25 04:04 White Blood Count 18.4 10^3/uL (4.4-10.8) H Departure 1 Departure Time of Disposition: 05:37 Impression: Primary Impression: Non-specific colitis Additional Impression: Intra-abdominal abscess Disposition: ADMITTED INPATIENT Condition: Guarded e-Prescriptions No Active Prescriptions or Reported Meds Discharged With: Self Comments Lower Abdominal Pain with Perirectal Abscess Chief Complaint: Lower abdominal pain for 2.5 weeks History of Present Illness: 59-year-old female presents to the emergency department with lower abdominal pain that has been present for approximately two and a half weeks. The pain has been gradually worsening over this time period. Patient appears in mild distress on presentation. No reported fever, chills, nausea, vomiting, diarrhea, constipation, or changes in bowel habits mentioned in the [employer] rede[employer] specialist. No information provided about prior treatments or interventions attempted before presentation. Review of Systems: Constitutional: Mild distress noted. Gastrointestinal: Positive for lower abdominal pain for 2.5 weeks, gradually worsening. Genitourinary: Urinalysis findings consistent with UTI. All other systems: Not documented in [employer] rede[employer] specialist. Physical Exam: General: Patient in mild distress. Abdomen: Tender in bilateral lower quadrants. No rebound tenderness or other peritoneal signs noted. Lab Results: CBC: - WBC: 18.4 (Elevated) - Neutrophils: 84% (Left shift) Chemistry Panel: - Total Bilirubin: 1.2 (Slightly elevated) - ALT: 49 (Slightly elevated) - Alkaline Phosphatase: 201 (Elevated) - Remainder of chemistry panel unremarkable Urinalysis: - Leukocytes: 3+ - Ketones: 1+ - Blood: Present - Protein: Present - Findings consistent with urinary tract infection Imaging and Other Relevant Results: CT Abdomen/Pelvis: - Evidence of colitis - Perirectal abscess identified Medical Decision Making: Summary Statement: 59-year-old female presenting with worsening lower abdominal pain for 2.5 weeks found to have colitis with perirectal abscess on CT imaging, elevated inflammatory markers, and concurrent urinary tract infection. Problem List: 1. Perirectal abscess, 2. Colitis, 3. Urinary tract infection, 4. Elevated liver enzymes Differential Diagnosis: Perirectal/perianal abscess, diverticulitis, inflammatory bowel disease (ulcerative colitis, Crohn's disease), complicated urinary tract infection with pyelonephritis, pelvic inflammatory disease, tubo- ovarian abscess, appendicitis, ischemic colitis, infectious colitis (C. difficile, bacterial, viral). ED Course: Patient evaluated for lower abdominal pain. Labs revealed leukocytosis with left shift, mildly elevated liver enzymes, and urinalysis consistent with UTI. CT abdomen/pelvis showed colitis with perirectal abscess. Decision made to admit for IV antibiotics, surgical consultation, and possible interventional radiology drainage of the abscess. Assessment and Plan: 1. Intra-abdominal Abscess with Colitis - Admit to hospital for management - Start broad-spectrum IV antibiotics (recommend piperacillin-tazobactam or similar) - Surgical consultation for evaluation and possible surgical intervention - Interventional Radiology consultation for possible percutaneous drainage - Pain management as needed 2. Urinary Tract Infection - Include coverage for UTI in antibiotic regimen - Monitor urine output and symptoms - Consider urine culture to guide targeted therapy 3. Elevated Liver Enzymes - Likely reactive to infectious/inflammatory process - Monitor liver function tests during admission - Consider hepatitis panel if elevation persists 4. Disposition: Admission to inpatient service with close monitoring Additional Notes: Patient requires admission for IV antibiotics and possible IR drainage of perirectal abscess Billing Information: ICD-10: K61.1 - Rectal abscess ICD-10: K52.9 - Noninfective colitis, unspecified ICD-10: N39.0 - Urinary tract infection, site not specified ICD-10: R10.30 - Lower abdominal pain, unspecified Critical Care Note Critical Care Time?: No Stability Stability form required: No Heart Score Heart Score: Heart Score Response (Comments) Value History N/A 0 EKG N/A 0 Age N/A 0 Risk Factors N/A 0 Troponin N/A 0 Total 0 I personally scribed for JEN NOBLE MD ([email or web address]) on 06/29/25 at 04:02. Electronically submitted by Sloan Carreno ([email or web address]). JEN NOBLE MD Jun 29, 2025 04:02
[2025-06-29 04:23] LABS: Hematocrit 38.2 % (36.0-46.0); Hemoglobin 13.7 g/dL (12.2-16.2); Mean Corpuscular Hemoglobin 31.3 pg (28.0-32.0); Mean Corpuscular Volume 87.1 fL (80.0-100.0); Nucleated Red Blood Cells % 0.0 %
[2025-06-29 04:29] LABS: Urine Protein, UAD 1+ (Negative)
[2025-06-29 04:40] LABS: Albumin 4.4 g/dL (3.2-4.8); Anion Gap 10 (5-15); BUN/Creatinine Ratio 19.0 (10.0-20.0); Blood Urea Nitrogen 15 mg/dL (9-23); Calcium 9.6 mg/dL (8.7-10.4); Carbon Dioxide 26 mmol/L (20-31); Chloride 99 mmol/L (98-107); Potassium 3.7 mmol/L (3.5-5.1); Total Protein 7.4 g/dL (5.7-8.2)
[2025-06-29 04:41] LABS: Bilirubin, Total 1.2 mg/dL (0.2-1.0)
[2025-06-29 04:42] LABS: Alanine Aminotransferase 49 U/L (7-40); Alkaline Phosphatase 201 U/L (46-116); Glucose 122 mg/dL (74-106); Sodium 135 mmol/L (136-145)
[2025-06-29 05:05] LABS: Lipase 41 U/L (12-53)
[2025-06-29] MEDS: IOHEXOL 300 MG/ML 100ML BOTTLE IJ ONE (05:16)
--- NOTE | 2025-06-29 05:31 | DVH ---
Exam: CT CT AB PEL WITH IV CON ONLY History: abd pain COMPARISON: None Technique: Multidetector spiral CT of the abdomen and pelvis was performed from lung bases to pubic s ymphysis. Intravenous contrast was administered during this examination. Portal venous imaging was o btained. Axial, coronal and sagittal multiplanar reformats were performed by the technologist on a [employer] workstation. Radiation Dose : 1. Abdomen/Pelvis: CTDIvol 6.11 mGy, DLP 357.44 mGy*cm. CONTRAST: Type of contrast: Omniscan 300 Contrast injected: 100 ml Findings: Lung Bases: No acute or significant lung base finding. Normal heart size. No pleural or pericardial effusion. Bilateral breast prostheses. Liver: The liver is normal in size. No focal lesions. Normal hepatic vascular enhancement. Gallbladder and Biliary Tree: Unremarkable Spleen: Unremarkable Pancreas: The pancreas is normal in appearance without focal lesions or abnormal enhancement. Adrenal Glands: Unremarkable Kidneys: No hydronephrosis. Bladder: Unremarkable Bowel: The stomach is grossly normal in appearance. Diffusely thickened edematous terminal ileum and cecum with extensive intramural edema and adjacent inflammatory changes. Inferiorly adjacent to the i leocecal junction is an organized fluid collection measuring 4.5 x 4.3 cm consistent with abscess and containing punctate collections of gas. A smaller organized near water attenuation structure more pr oximal to the right adnexal region measures 2.9 x 1.5 cm and may represent additional continuation of abscess versus adnexal cystic structure. The appendix is not visualized; however, no secondary findi ngs of acute appendicitis identified. Ascites: Absent Lymphadenopathy: No mesenteric, retroperitoneal or periportal lymphadenopathy. Abdominal Wall and Mesentery: Unremarkable. Vasculature: The visualized abdominal aorta is normal in size and caliber. Atherosclerotic vascular c alcifications. Abdominal and pelvic vessels demonstrate normal enhancement. Pelvic Organs: Unremarkable. Likely physiologic endometrial fluid. Musculoskeletal: No aggressive focal bony lesions, acute fractures or dislocation. IMPRESSION: 1. Terminal ileitis and cecal wall thickening and intramural edema in association with an abscess inf eriorly adjacent to the ileocecal junction with possible continuation into the right adnexal region v ersus ovarian cyst. These findings raise concern for Crohn's disease and terminal ileitis. 2. Findings were discussed with and acknowledged by Dr. Barroso of the emergency department at 5:25 a. m. on June 29, 2025. Radiation optimization: All CT scans at this facility use at least one of these dose optimization jane hniques: automated exposure control mA and/or kV adjustment per patient size (includes targeted exam s where dose is matched to clinical indication) or iterative reconstruction.
[2025-06-29] MEDS: SODIUM CHLORIDE 0.9% 1,000 ML IVB ONE (05:35)
[2025-06-29 05:44] VITALS: PULSE 70; RESP 18; O2SAT 95
[2025-06-29] MEDS: PIPERACILLIN-TAZOB 3.375GM 100 ML IV ONE (06:45)
[2025-06-29] MEDS: SODIUM CHLORIDE 0.9% 500 ML IV ONE (09:30)
[2025-06-29] MEDS: SODIUM CHLORIDE 0.9% 1,000 ML IV ONE (09:30)
--- NOTE | 2025-06-29 09:39 | DVHHPRES ---
History of Present Illness Resident Creating Document: JACI PHILLIP RESIDENT History of Present Illness Patient is 59-year-old female with past medical history of gastritis, ovarian cyst, benign colon polyps came to the hospital with a chief complaint of worsening right lower quadrant abdominal pain, onset on May 14, mainly radiating to generalized abdomen, associated with chronic constipation, associated with fever and chills, denied nausea or vomiting or diarrhea. No any recent travel, never experienced similar kind of pain before. Patient also complaining of dark urine, loss of appetite and increased sleepiness/fatigue. Abdominal pain is 5/10, mainly located in right lower quadrant, also generalized to left-sided. Patient underwent upper GI endoscopy and colonoscopy in 2021, was diagnosed with gastritis and benign colon polyp advised to follow up in 3-5 years. Patient denied any other symptoms including chest pain, shortness of breath, dizziness, muscular weakness, sensory deficits. No any other new complaints. Past medical history: Gastritis, weaning cyst, benign colon polyps Past surgical history: Two section, breast augmentation Allergy" sulfa drugs, nitrofurantoin, mild hives with penicillin Personal: Denied any recreational drug use, lives with family Home medication: None Review of Systems Constitutional: No: Fever, Chills, Sweats, Weakness, Malaise, Other Eyes: No: Pain, Vision change, Conjunctivae inflammation, Eyelid inflammation, Other, Redness ENT: No: Ear pain, Ear discharge, Nose pain, Nose discharge, Nose congestion, Mouth pain, Mouth swelling, Throat pain, Throat swelling, Other Respiratory: No: Cough, Dry, Shortness of breath, SOB with excertion, Wheezing, Hemoptysis, Pleuritic Pain, Sputum, Wheezing, Other Cardiovascular: No: Chest Pain, Palpitations, Orthopnea, Paroxysmal Noc. Dyspnea, Edema, Lt Headedness, Other Gastrointestinal: Abdominal Pain, Constipation Genitourinary: No Dysuria, No Frequency, No Incontinence, No Hematuria, No Retention, No Other Musculoskeletal: No: other, neck pain, shoulder pain, arm pain, back pain, hand pain, leg pain, foot pain Skin: No: Rash, Lesions, Jaundice, Bruising, Other Neurological: No: Weakness, Numbness, Incoordination, Change in speech, Confus ion, Seizures, Other Allergies: Coded Allergies: Magnesium (Verified Allergy, Intermediate, 08/18/24) Penicillins (Verified Allergy, Unknown, 08/18/24) Sulfa Antibiotics (Verified Allergy, Unknown, 08/18/24) Medications Current Medications Medications Dose Ordered Sig/Heather Route Start Time Stop Time Status Last Admin Dose Admin Piperacillin Sod/ Tazobactam Sod 100 ml @ 25 mls/hr Q6HR IV 06/29/25 12:00 UNV Prednisone 40 mg DAILY PO 06/29/25 10:00 UNV Pantoprazole Sodium 40 mg DAILY IV 06/29/25 10:00 UNV Exam Vital Signs Vital Signs Date Time Temp Pulse Resp B/P (MAP) Pulse Ox O2 Delivery O2 Flow Rate FiO2 06/29/25 07:20 97.8 96 16 99/66 (77) 98 97.8 06/29/25 05:44 Room Air* 0 21 Exam General Appearance: Cooperative. Well developed. Well nourished. NAD Head Exam: Normal inspection Neck Exam: Normal inspection. Non-tender. Normal alignment Pulmonary/Respiratory: Chest non-tender. Clear bilateral breath sounds Cardiovascular/Chest: Regular rate and rhythm. No murmurs. No JVD. Peripheral Pulses: 2+ Radial (R). 2+ Radial (L). 2+ Pedal (R). 2+ Pedal (L) Abdominal Exam: Normal bowel sounds. Soft. Mild tenderness over right lower quadrant abdominal , no rigidity or guarding. No hepatospenomegaly. No masses Ankle Exam: Negative ankle edema Lower extremities: Negative lower extremity edema Neuro/Mental Status: A&O x4. Coherent Thoughts/Psych: Normal thought pattern. Appropriate mood and affect. Good ju dgement and insight Appearance: In no acute distress Skin Exam: Normal inspection. Normal color. Warm. Dry Labs/Xrays Labs Test 06/29/25 05:48 06/29/25 04:04 06/29/25 03:45 Range/Units Lactic Acid Level 0.9 0.4-2.0 mmol/L White Blood Count 18.4 H 4.4-10.8 10^3/uL Red Blood Count 4.38 4.0-5.20 10^6/uL Hemoglobin 13.7 12.2-16.2 g/dL Hematocrit 38.2 36.0-46.0 % Mean Corpuscular Volume 87.1 80.0-100.0 fL Mean Corpuscular Hemoglobin 31.3 28.0-32.0 pg Mean Corpuscular Hemoglobin Concent 35.9 32.0-36.0 g/dL Red Cell Distribution Width 12.4 11.8-14.3 % Platelet Count 338 140-450 10^3/uL Mean Platelet Volume 7.1 6.9-10.8 fL Neutrophils (%) (Auto) 84.2 H 37.0-80.0 % Lymphocytes (%) (Auto) 7.4 L 10.0-50.0 % Monocytes (%) (Auto) 7.9 0.0-12.0 % Eosinophils (%) (Auto) 0.3 0.0-7.0 % Basophils (%) (Auto) 0.2 0.0-2.0 % Neutrophils # (Auto) 15.4 H 1.6-8.6 10 ^3/uL Lymphocytes # (Auto) 1.4 0.4-5.4 10 ^3/uL Monocytes # (Auto) 1.5 H 0-1.3 10 ^3/uL Eosinophils # (Auto) 0.1 0-0.8 10 ^3/uL Basophils # (Auto) 0 0-0.2 10 ^3/uL Nucleated Red Blood Cells 0.0 % Sodium Level 135 L 136-145 mmol/L Potassium Level 3.7 3.5-5.1 mmol/L Chloride Level 99 98-107 mmol/L Carbon Dioxide Level 26 20-31 mmol/L Anion Gap 10 5-15 Blood Urea Nitrogen 15 9-23 mg/dL Creatinine 0.79 0.550-1.02 mg/dL Glomerular Filtration Rate Calc 86 >90 mL/min BUN/Creatinine Ratio 19.0 10.0-20.0 Serum Glucose 122 H 74-106 mg/dL Calcium Level 9.6 8.7-10.4 mg/dL Total Bilirubin 1.2 H 0.2-1.0 mg/dL Aspartate Amino Transferase (AST) 40 13-40 U/L Alanine Aminotransferase (ALT) 49 H 7-40 U/L Alkaline Phosphatase 201 H 46-116 U/L Total Protein 7.4 5.7-8.2 g/dL Albumin 4.4 3.2-4.8 g/dL Lipase 41 12-53 U/L Urine Color Light-orange Yellow Urine Clarity Ex.turbid Clear Urine pH 6.0 5.0-9.0 Urine Specific [place] 1.024 1.001-1.035 Urine Protein 1+ H Negative Urine Ketones 1+ H Negative Urine Blood 1+ H Negative /uL Urine Nitrite Negative Negative Urine Bilirubin Negative Negative Urine Urobilinogen 2 H Negative mg/dL Urine Leukocyte Esterase 3+ Negative /uL Urine RBC 26 0 - 4 /hpf Urine Microscopic WBC 239 H 0-5 /HPF Urine Squamous Epithelial Cells Many <5 /hpf Urine Bacteria Few H None Seen /hpf Urine Hyaline Casts Few 0 - 2 /lpf Urine Mucus Moderate None Seen Urine Glucose Normal Normal mg/dL SEPSIS Sepsis Screen Date sepsis recognized/suspect: Jun 29, 2025 Time Sepsis recognized/suspect: 337 Recent Procedure: No On Antibiotic Therapy: No Respiratory Rate >20: No Heart Rate >90: Yes Temp<36 C (96.8 F) or >38.3 C: No SBP <90 or MAP <65 mmHG: No New Acute Mental Status Change: No Is the patient on CPAP, BIPAP,: No Physician Orders Electrocardigram (06/29/25 03:35) Ct Ab Pel With Iv Con Only (06/29/25 03:54) Blood Culture (06/29/25 05:32) Admit (06/29/25 09:17) Sodium Chloride 0.9% (06/29/25 09:30) Sodium Chloride 0.9% (06/29/25 09:30) Piperacillin-Tazob 3.375gm (Zosyn 3.375g (06/29/25 12:00) Inflammatory Bowel Disease-Ibd (06/29/25 09:17) * Gi Dvh Litigation Attorney Associate (06/29/25 09:17) Blood Culture (06/29/25 09:17) Clear Liq Diet (06/29/25 Breakfast) Prednisone Tablet (06/29/25 09:30) Prednisone Tablet (06/29/25 10:00) Pantoprazole (Protonix) (06/29/25 09:30) Pantoprazole (Protonix) (06/29/25 10:00) LIVER (06/29/25 09:17) Urine Bacterial Culture (06/29/25 09:17) * Engineer Process Consultation (06/29/25 09:28) Vital Signs Date Time Temp Pulse Resp B/P (MAP) Pulse Ox O2 Delivery O2 Flow Rate FiO2 06/29/25 07:20 97.8 96 16 99/66 (77) 98 97.8 06/29/25 05:44 70 18 95 Room Air* 0 21 06/29/25 05:39 98.7 70 18 90/54 (66) 95 98.7 06/29/25 03:36 84 06/29/25 03:33 99.2 93 20 111/59 95 99.2 Laboratory Tests Test 06/29/25 04:04 06/29/25 05:48 White Blood Count 18.4 10^3/uL (4.4-10.8) H Lactic Acid Level 0.9 mmol/L (0.4-2.0) Medications Medications Dose Ordered Sig/Heather Route Start Time Stop Time Status Last Admin Dose Admin Piperacillin Sod/ Tazobactam Sod 100 ml @ 100 mls/hr ONCE ONCE IV 06/29/25 05:45 06/29/25 06:44 DC 06/29/25 06:45 100 MLS/HR Sodium Chloride 1,000 ml @ 1,000 mls/hr Q1H ONCE IVB 06/29/25 04:00 06/29/25 04:59 DC 06/29/25 05:35 1,000 MLS/HR Reassessment Post Fluid Date of Reassessment: Jun 29, 2025 Time of Reassessment: 09:00 Assessment/Plan Assessment/Plan Sepsis likely due to intra-abdominal abscess/ acute Crohn's disease Urine tract infection Severe dehydration Terminal ileitis and cecal wall thickening likely due to Crohn's disease Intra-abdominal abscess History of ovarian cyst Plan/recommendation -IV fluid with normal saline 500 bolus, continue with 125 mL/hour, continue to monitor I&O. -IV antibiotic with Zosyn, CT abdominal pelvis showed terminal ileitis with thickening of cecum wall, with continuation nearby ovarian cyst -prednisolone 40 mg p.o. daily for mild Crohn's exacerbation -IV antibiotics Zosyn 3.375 mg q.6 -IV Protonix for PUD prophylaxis -consultation with the GI for Crohn's disease -consultation with OBGYN for ovarian cysts questionable infected -pending urine culture, blood culture. -clear liquid diet Goals of care discussed greater than 24 minutes, full code status. Admit to med surge Plan discussed with Dr. Greer Plan discussed with: Patient, Other My Orders Orders - JACI PHILLIP RESIDENT Procedure Category Date Status Time Admit ADMIT 06/29/25 Transmitted 09:17 Sodium Chloride 0.9% PHA 06/29/25 Logged 09:30 Sodium Chloride 0.9% PHA 06/29/25 Logged 09:30 Piperacillin-Tazob PHA 06/29/25 Logged 3.375gm (Zosyn 3.375g 12:00 Inflammatory Bowel LAB 06/29/25 Logged Disease-Ibd 09:17 * Gi Dvh Litigation Attorney Associate CONS 06/29/25 Transmitted 09:17 Blood Culture KENDRICK 06/29/25 Logged 09:17 Clear Liq Diet DIET 06/29/25 Transmitted Breakfast Prednisone Tablet PHA 06/29/25 Logged 09:30 Prednisone Tablet PHA 06/29/25 Logged 10:00 Pantoprazole PHA 06/29/25 Logged (Protonix) 09:30 Pantoprazole PHA 06/29/25 Logged (Protonix) 10:00 LIVER US 06/29/25 Logged 09:17 Urine Bacterial KENDRICK 06/29/25 In Process Culture 09:17 * Engineer Process Consultation CONS 06/29/25 Transmitted 09:28 Date of Service: Jun 29, 2025 Billing Provider: JACI PHILLIP Common Visit Codes: [id number] INP/OBS CARE (HIGH) Secondary Visit Codes: [id number] CARE PLAN 30 MINUTES JACI PHILLIP Jun 29, 2025 09:39 BIRDIE GREER MD Jun 30, 2025 21:29
[2025-06-29] MEDS: predniSONE 20 MG TAB PO ONE (09:46)
[2025-06-29] MEDS: PANTOPRAZOLE 40 MG/10 ML VIAL INJ IV ONE (09:47)
--- NOTE | 2025-06-29 10:56 | DVH ---
INDICATION: elevated alkaline phosphate TECHNIQUE: Multiple real-time sonographic images were obtained of the right upper quadrant. COMPARISON: None FINDINGS: The liver demonstrates homogeneous echotexture without focal mass lesions. The liver measu res 13.8 cm. There is no intrahepatic or extrahepatic ductal dilatation. The common duct measures 0.5 cm. The gallbladder is without evidence of stone or sludge. The gallbladder wall measures 0.3 cm and is w ithin normal limits. The right kidney measures 9.3 cm. The right kidney is normal in contour, size, and shape. The echogen icity is normal. There is no hydronephrosis. Nonobstructing stone in the right kidney measures 0.5 cm . The pancreas is not well visualized due to overlying bowel gas. IMPRESSION: 0.5 cm nonobstructing stone in the right kidney.
[2025-06-29 12:25] VITALS: BP 93/56; PULSE 63; RESP 14; TEMP 98.1; O2SAT 96
[2025-06-29] MEDS: PIPERACILLIN-TAZOB 3.375GM 100 ML IV SCH (14:10)
[2025-06-29] MEDS: SODIUM CHLORIDE 0.9% 1,000 ML IV SCH (17:30)
[2025-06-29 18:26] LABS: Calcium 9.2 mg/dL (8.7-10.4); Carbon Dioxide 26 mmol/L (20-31); Chloride 105 mmol/L (98-107)
[2025-06-29 18:27] LABS: Albumin 4.1 g/dL (3.2-4.8); Anion Gap 7 (5-15); BUN/Creatinine Ratio 18.5 (10.0-20.0); Bilirubin, Total 0.8 mg/dL (0.2-1.0); Blood Urea Nitrogen 12 mg/dL (9-23); Potassium 4.4 mmol/L (3.5-5.1); Sodium 138 mmol/L (136-145); Total Protein 7.0 g/dL (5.7-8.2)
[2025-06-29 18:36] LABS: Alanine Aminotransferase 45 U/L (7-40); Alkaline Phosphatase 190 U/L (46-116); Glucose 147 mg/dL (74-106)
[2025-06-29] MEDS: ENOXAPARIN SOD 30 MG/0.3 ML SYRINGE IV ONE (18:54)
[2025-06-29 21:00] VITALS: BP 90/52; PULSE 65; RESP 17; TEMP 97.9; O2SAT 95
[2025-06-29 23:34] VITALS: PULSE 55; RESP 16; O2SAT 95
[2025-06-30] VITALS (8 sets, daily range): BP systolic 96–111; BP diastolic 44–67; PULSE 50–76; RESP 16–18; TEMP 97.4–98.4; O2SAT 95–98
[2025-06-30 07:10] LABS: Hematocrit 32.9 % (36.0-46.0); Hemoglobin 11.5 g/dL (12.2-16.2); Mean Corpuscular Hemoglobin 30.8 pg (28.0-32.0); Mean Corpuscular Volume 87.9 fL (80.0-100.0); Nucleated Red Blood Cells % 0.0 %
--- NOTE | 2025-06-30 07:34 | DVHINCON2 ---
Date of service: Jun 30, 2025 Referring Physician Annelise Reason for Consultation Possible Crohn's disease History of Present Illness Patient is a 59-year-old female with no significant past medical history other than ovarian cyst, admitted with a history of abdominal pain in the right lower quadrant, generalized, and imaging findings suggestive of terminal ileitis. Patient has no prior history. She has had a colonoscopy several years ago we will showed benign colon polyps. Patient denies any hematochezia, hematemesis, weight loss, nausea, vomiting or diarrhea. Patient denies any family history of gastrointestinal diseases or malignancies. Patient was started on IV steroids and antibiotics. She states she feels better since admission. Patient also noted to have a right kidney stone was nonobstructing. Patient denies any hematuria or dysuria. She denies any chest pain or shortness of breath. Past Medical History As above Past Surgical History 1. A section 2. Breast augmentation Family History: Diabetes mellitus G8 MOTHER FHx: hypertension G8 FATHER Family History No gastrointestinal diseases or malignancy Social History No significant tobacco, alcohol or recreational drug use Allergies: Coded Allergies: Magnesium (Verified Allergy, Intermediate, 08/18/24) Penicillins (Verified Allergy, Unknown, 08/18/24) Sulfa Antibiotics (Verified Allergy, Unknown, 08/18/24) Home Meds No Active Prescriptions or Reported Meds Current Medications Current Medications Medications (Trade) Dose Ordered Sig/Heather Route PRN Reason Start Time Stop Time Status Last Admin Piperacillin Sod/ Tazobactam Sod 100 ml @ 25 mls/hr Q8HR IV 06/29/25 14:00 06/30/25 05:05 Prednisone 40 mg DAILY PO 06/30/25 10:00 Pantoprazole Sodium (Protonix) 40 mg DAILY IV 06/30/25 10:00 Sodium Chloride 1,000 ml @ 100 mls/hr Q10H IV 06/29/25 17:30 06/29/25 17:30 Enoxaparin Sodium (Lovenox) 30 mg DAILY SC 06/30/25 10:00 Review of Systems 12 point review of systems negative other than HPI Vital Signs Vital Signs Date Time Temp Pulse Resp B/P (MAP) Pulse Ox O2 Delivery O2 Flow Rate FiO2 06/30/25 05:00 97.7 50 16 111/58 (75) 97 97.7 06/29/25 23:34 Room Air* 0 21 Physical Exam General: Alert and oriented lying in bed no distress, well-developed well- nourished HEENT: NC/AT EOMI PERRLA-O/P clear Heart: Regular rate and rhythm Abdomen: Soft mild epigastric tenderness to palpation no rebound tenderness or guarding Extremities: No clubbing cyanosis or edema Neuro: Cranial nerves 2-12 grossly intact moves all four extremities Labs/Diagnostic Data Labs Test 06/30/25 06:06 06/29/25 17:47 06/29/25 09:52 06/29/25 05:48 Range/Units White Blood Count 13.6 #H 4.4-10.8 10^3/uL Red Blood Count 3.75 L 4.0-5.20 10^6/uL Hemoglobin 11.5 #L 12.2-16.2 g/dL Hematocrit 32.9 #L 36.0-46.0 % Mean Corpuscular Volume 87.9 80.0-100.0 fL Mean Corpuscular Hemoglobin 30.8 28.0-32.0 pg Mean Corpuscular Hemoglobin Concent 35.0 32.0-36.0 g/dL Red Cell Distribution Width 12.6 11.8-14.3 % Platelet Count 304 140-450 10^3/uL Mean Platelet Volume 7.5 6.9-10.8 fL Neutrophils (%) (Auto) 81.7 H 37.0-80.0 % Lymphocytes (%) (Auto) 11.6 10.0-50.0 % Monocytes (%) (Auto) 6.4 0.0-12.0 % Eosinophils (%) (Auto) 0.1 0.0-7.0 % Basophils (%) (Auto) 0.2 0.0-2.0 % Neutrophils # (Auto) 11.1 H 1.6-8.6 10 ^3/uL Lymphocytes # (Auto) 1.6 0.4-5.4 10 ^3/uL Monocytes # (Auto) 0.9 0-1.3 10 ^3/uL Eosinophils # (Auto) 0 0-0.8 10 ^3/uL Basophils # (Auto) 0 0-0.2 10 ^3/uL Nucleated Red Blood Cells 0.0 % Sodium Level 138 136-145 mmol/L Potassium Level 4.4 3.5-5.1 mmol/L Chloride Level 105 98-107 mmol/L Carbon Dioxide Level 26 20-31 mmol/L Anion Gap 7 5-15 Blood Urea Nitrogen 12 9-23 mg/dL Creatinine 0.65 0.550-1.02 mg/dL Glomerular Filtration Rate Calc 101 >90 mL/min BUN/Creatinine Ratio 18.5 10.0-20.0 Serum Glucose 147 H 74-106 mg/dL Calcium Level 9.2 8.7-10.4 mg/dL Total Bilirubin 0.8 0.2-1.0 mg/dL Aspartate Amino Transferase (AST) 35 13-40 U/L Alanine Aminotransferase (ALT) 45 H 7-40 U/L Alkaline Phosphatase 190 H 46-116 U/L Total Protein 7.0 5.7-8.2 g/dL Albumin 4.1 3.2-4.8 g/dL Lactic Acid Level 0.9 0.4-2.0 mmol/L Test 06/29/25 04:04 06/29/25 03:45 Range/Units Hemoglobin A1c 5.5 <5.7 % A1C B-Type Natriuretic Peptide 22.95 0-100 pg/mL Lipase 41 12-53 U/L Thyroid Stimulating Hormone (TSH) 3.68 0.55-4.78 uIU/mL Urine Color Light-orange Yellow Urine Clarity Ex.turbid Clear Urine pH 6.0 5.0-9.0 Urine Specific [place] 1.024 1.001-1.035 Urine Protein 1+ H Negative Urine Ketones 1+ H Negative Urine Blood 1+ H Negative /uL Urine Nitrite Negative Negative Urine Bilirubin Negative Negative Urine Urobilinogen 2 H Negative mg/dL Urine Leukocyte Esterase 3+ Negative /uL Urine RBC 26 0 - 4 /hpf Urine Microscopic WBC 239 H 0-5 /HPF Urine Squamous Epithelial Cells Many <5 /hpf Urine Bacteria Few H None Seen /hpf Urine Hyaline Casts Few 0 - 2 /lpf Urine Mucus Moderate None Seen Urine Glucose Normal Normal mg/dL Microbiology Date/Time Source Procedure Growth Status 06/29/25 05:48 Blood Blood Culture - Preliminary NO GROWTH AFTER 24 [address]RS OF [address]. Resulted CT scan findings 1. Terminal ileitis and cecal wall thickening and intramural edema in association with an abscess inferiorly adjacent to the ileocecal junction with possible continuation into the right adnexal region versus ovarian cyst. These findings raise concern for Crohn's disease and terminal ileitis. 2. Findings were discussed with and acknowledged by Dr. Barroso of the emergency department at 5:25 a.m. on June 29, 2025. Radiation optimization: All CT scans at this facility use at least one of these dose optimization techniques: automated exposure control mA and/or kV adjustment per patient size (includes targeted exams where dose is matched to clinical indication) or iterative reconstruction. Assessment 1. Abdominal pain 2. Abnormal Kavitha of the CT scan with cecal wall thickening in possible terminal ileitis , and associated abscess 3. Transaminitis 4. Ovarian cyst 5. Nonobstructing 5 mm kidney stone on the right side Problems(with codes): (1) Non-specific colitis (2) Intra-abdominal abscess Plan/Recommendation 1. Surgical consultation for evaluation 2. Continue antibiotics 3. Steroids, patient is currently on 40 mg we will continue with this 4. Clear liquid diet 5. Hold off on any colonoscopy at this time. If the patient improves with antibiotics and steroids patient will need outpatient colonoscopy 6. Patient will be followed Plan discussed with: Patient ISABEL NELSON MD Jun 30, 2025 07:34
[2025-06-30] MEDS: PANTOPRAZOLE 40 MG/10 ML VIAL INJ IV SCH (09:12)
[2025-06-30] MEDS: predniSONE 20 MG TAB PO SCH (09:12)
[2025-06-30] MEDS: ENOXAPARIN SOD 30 MG/0.3 ML SYRINGE SC SCH (10:00)
--- NOTE | 2025-06-30 14:03 | DVHPN2 ---
[facility]ive [facility] Patient's chart is reviewed and discussed with the nurse. Patient is tolerating clear liquid diet. No abdominal pain. Last colonoscopy was done in at this hospital in May 2022 and few polyps were removed by Dr. Jorge L Novoa. At that time they have recommended repeat colonoscopy after 3-5 years. Changes from previous H/P or p: No Changes Eyes: No Pain, No Vision change, No Conjunctivae inflammation, No Eyelid inflammation, No Other, No Redness ENT: No Ear pain, No Ear discharge, No Nose pain, No Nose discharge, No Nose congestion, No Mouth pain, No Mouth swelling, No Throat pain, No Throat swelling, No Other Cardiovascular: No Chest Pain, No Palpitations, No Orthopnea, No Paroxysmal Noc. Dyspnea, No Edema, No Lt Headedness, No Other Respiratory: No Cough, No Dry, No Shortness of breath, No SOB with excertion, No Wheezing, No Hemoptysis, No Pleuritic Pain, No Sputum, No Other Gastrointestinal: Abdominal Pain, Constipation Genitourinary: No Dysuria, No Frequency, No Incontinence, No Hematuria, No Retention, No Other Musculoskeletal: No other, No neck pain, No shoulder pain, No arm pain, No back pain, No hand pain, No leg pain, No foot pain Skin: No Rash, No Lesions, No Jaundice, No Bruising, No Other Objective Vitals Vital Signs Date Time Temp Pulse Resp B/P (MAP) Pulse Ox O2 Delivery O2 Flow Rate FiO2 06/30/25 09:00 98.0 52 18 96/44 (61) 95 98.0 06/30/25 08:00 Room Air* 0 21 Intake/Output Intake and Output 06/30/25 06:59 Intake Total 1320 ml Balance 1320 ml Intake Oral 120 ml IV Total 1200 ml # Voids 1 Exam Comfortable. No complaints. Requesting repeat colonoscopy while in the hospital. HEENT neck supple no JVD. Heart regular rate and rhythm. Lungs fair air movement without rales wheezes. Abdomen soft no significant tenderness to palpation. Positive bowel sounds. No rebound or guarding. Extremities no edema positive pulses. Medications Current Medications Medications Dose Ordered Sig/Heather Route Start Time Stop Time Status Last Admin Dose Admin Piperacillin Sod/ Tazobactam Sod 100 ml @ 25 mls/hr Q8HR IV 06/29/25 14:00 06/30/25 12:35 25 MLS/HR Prednisone 40 mg DAILY PO 06/30/25 10:00 06/30/25 09:12 40 MG Pantoprazole Sodium 40 mg DAILY IV 06/30/25 10:00 06/30/25 09:12 40 MG Enoxaparin Sodium 30 mg DAILY SC 06/30/25 10:00 Laboratory Results Laboratory Tests 06/29/25 17:47 06/30/25 06:06 Chemistry Test 06/29/25 17:47 Albumin 4.1 g/dL (3.2-4.8) Calcium Level 9.2 mg/dL (8.7-10.4) Total Protein 7.0 g/dL (5.7-8.2) LFT Test 06/29/25 17:47 Alanine Aminotransferase (ALT) 45 U/L (7-40) H Alkaline Phosphatase 190 U/L (46-116) H Aspartate Amino Transferase (AST) 35 U/L (13-40) Total Bilirubin 0.8 mg/dL (0.2-1.0) Urinalysis Test 06/29/25 03:45 Urine Color Light-orange (Yellow) Urine Clarity Ex.turbid (Clear) Urine pH 6.0 (5.0-9.0) Urine Specific [place] 1.024 (1.001-1.035) Urine Protein 1+ (Negative) H Urine Ketones 1+ (Negative) H Urine Blood 1+ /uL (Negative) H Urine Nitrite Negative (Negative) Urine Bilirubin Negative (Negative) Urine Urobilinogen 2 mg/dL (Negative) H Urine Leukocyte Esterase 3+ /uL (Negative) Urine RBC 26 /hpf (0 - 4) Urine Microscopic WBC 239 /HPF (0-5) H Urine Squamous Epithelial Cells Many /hpf (<5) Urine Bacteria Few /hpf (None Seen) H Urine Hyaline Casts Few /lpf (0 - 2) Urine Mucus Moderate (None Seen) Urine Glucose Normal mg/dL (Normal) Microbiology Microbiology Date/Time Source Procedure Growth Status 06/29/25 05:48 Blood Blood Culture - Preliminary NO GROWTH AFTER 24 HOURS OF INCUBATION. Resulted 06/29/25 03:45 Voided Urine Urine Culture - Preliminary Resulted Assessment/Plan Assessment/Plan Her symptoms are improving with current treatment of oral steroids and IV antibiotics. WBC has improved. We will advance her diet to full liquid diet. Continue rest of supportive care and treatment as she is on. Further clinical management per clinical course and recommendations from the moss picker in terms of colonoscopy during this hospitalization versus outpatient follow up and colonoscopy. Plan discussed with: Patient, Other My Orders Orders - ROYAL WALKER MD Procedure Category Date Status Time Full Liq Diet DIET 06/30/25 Transmitted Dinner Basic Metabolic Panel LAB 07/01/25 Verified 04:00 Complete Blood Count LAB 07/01/25 Verified 04:00 Problem List: (1) Non-specific colitis Date of Service: Jun 30, 2025 Billing Provider: ROYAL WALKER MD Common Visit Codes: [id number] INP/OBS CARE(MOD) ROYAL WALKER MD Jun 30, 2025 14:03
--- NOTE | 2025-06-30 21:42 | DVHINCON2 ---
Date of service: Jun 30, 2025 Referring Physician hospitalist Reason for Consultation ovarian cyst / pelvic pain History of Present Illness hx of chronic ovarian cysts Past Surgical History x2 , Breast aug Family History: Diabetes mellitus G8 MOTHER FHx: hypertension G8 FATHER Allergies: Coded Allergies: Magnesium (Verified Allergy, Intermediate, 08/18/24) Penicillins (Verified Allergy, Unknown, 08/18/24) Sulfa Antibiotics (Verified Allergy, Unknown, 08/18/24) Home Meds No Active Prescriptions or Reported Meds Current Medications Current Medications Medications (Trade) Dose Ordered Sig/Heather Route PRN Reason Start Time Stop Time Status Last Admin Prednisone 40 mg DAILY PO 06/30/25 10:00 06/30/25 09:12 Pantoprazole Sodium (Protonix) 40 mg DAILY IV 06/30/25 10:00 06/30/25 09:12 Enoxaparin Sodium (Lovenox) 30 mg DAILY SC 06/30/25 10:00 Review of Systems Hx colitis , ? Crohn's disease Vital Signs Vital Signs Date Time Temp Pulse Resp B/P (MAP) Pulse Ox O2 Delivery O2 Flow Rate FiO2 06/30/25 21:00 97.9 76 18 99/67 (78) 96 97.9 06/30/25 08:00 Room Air* 0 21 Physical Exam No acute pelvic abdominal findings , moderate pain , no rebound , or peritoneal signs at this time Labs/Diagnostic Data Labs Test 06/30/25 06:06 06/29/25 17:47 06/29/25 09:52 06/29/25 05:48 Range/Units White Blood Count 13.6 #H 4.4-10.8 10^3/uL Red Blood Count 3.75 L 4.0-5.20 10^6/uL Hemoglobin 11.5 #L 12.2-16.2 g/dL Hematocrit 32.9 #L 36.0-46.0 % Mean Corpuscular Volume 87.9 80.0-100.0 fL Mean Corpuscular Hemoglobin 30.8 28.0-32.0 pg Mean Corpuscular Hemoglobin Concent 35.0 32.0-36.0 g/dL Red Cell Distribution Width 12.6 11.8-14.3 % Platelet Count 304 140-450 10^3/uL Mean Platelet Volume 7.5 6.9-10.8 fL Neutrophils (%) (Auto) 81.7 H 37.0-80.0 % Lymphocytes (%) (Auto) 11.6 10.0-50.0 % Monocytes (%) (Auto) 6.4 0.0-12.0 % Eosinophils (%) (Auto) 0.1 0.0-7.0 % Basophils (%) (Auto) 0.2 0.0-2.0 % Neutrophils # (Auto) 11.1 H 1.6-8.6 10 ^3/uL Lymphocytes # (Auto) 1.6 0.4-5.4 10 ^3/uL Monocytes # (Auto) 0.9 0-1.3 10 ^3/uL Eosinophils # (Auto) 0 0-0.8 10 ^3/uL Basophils # (Auto) 0 0-0.2 10 ^3/uL Nucleated Red Blood Cells 0.0 % Sodium Level 138 136-145 mmol/L Potassium Level 4.4 3.5-5.1 mmol/L Chloride Level 105 98-107 mmol/L Carbon Dioxide Level 26 20-31 mmol/L Anion Gap 7 5-15 Blood Urea Nitrogen 12 9-23 mg/dL Creatinine 0.65 0.550-1.02 mg/dL Glomerular Filtration Rate Calc 101 >90 mL/min BUN/Creatinine Ratio 18.5 10.0-20.0 Serum Glucose 147 H 74-106 mg/dL Calcium Level 9.2 8.7-10.4 mg/dL Total Bilirubin 0.8 0.2-1.0 mg/dL Aspartate Amino Transferase (AST) 35 13-40 U/L Alanine Aminotransferase (ALT) 45 H 7-40 U/L Alkaline Phosphatase 190 H 46-116 U/L Total Protein 7.0 5.7-8.2 g/dL Albumin 4.1 3.2-4.8 g/dL Lactic Acid Level 0.9 0.4-2.0 mmol/L Test 06/29/25 04:04 06/29/25 03:45 Range/Units Hemoglobin A1c 5.5 <5.7 % A1C B-Type Natriuretic Peptide 22.95 0-100 pg/mL Lipase 41 12-53 U/L Thyroid Stimulating Hormone (TSH) 3.68 0.55-4.78 uIU/mL Urine Color Light-orange Yellow Urine Clarity Ex.turbid Clear Urine pH 6.0 5.0-9.0 Urine Specific [place] 1.024 1.001-1.035 Urine Protein 1+ H Negative Urine Ketones 1+ H Negative Urine Blood 1+ H Negative /uL Urine Nitrite Negative Negative Urine Bilirubin Negative Negative Urine Urobilinogen 2 H Negative mg/dL Urine Leukocyte Esterase 3+ Negative /uL Urine RBC 26 0 - 4 /hpf Urine Microscopic WBC 239 H 0-5 /HPF Urine Squamous Epithelial Cells Many <5 /hpf Urine Bacteria Few H None Seen /hpf Urine Hyaline Casts Few 0 - 2 /lpf Urine Mucus Moderate None Seen Urine Glucose Normal Normal mg/dL Microbiology Date/Time Source Procedure Growth Status 06/29/25 05:48 Blood Blood Culture - Preliminary NO GROWTH AFTER 24 HOURS OF INCUBATION. Resulted 06/29/25 03:45 Voided Urine Urine Culture - Preliminary Resulted Assessment Pelvic pain , ovarian cyst Plan/Recommendation T Vaginal US Plan discussed with: Patient ANKIT LEDESMA Jun 30, 2025 21:42
[2025-07-01] VITALS (8 sets, daily range): BP systolic 105–132; BP diastolic 51–77; PULSE 46–87; RESP 16–19; TEMP 97.4–98.6; O2SAT 95–100
--- NOTE | 2025-07-01 01:13 | DVH ---
INDICATION: pain ovarian vs cecal cyst TECHNIQUE: Multiple real-time grayscale transabdominal sonographic images along with color and duplex Doppler of the uterus and ovaries were obtained. COMPARISON: None FINDINGS: The uterus measures 6.6 x 2.7 x 4.7 cm. The endometrial stripe measures 3 cm. Small hyperec hoic focus of the uterine fundus likely represents a calcification/involuted fibroid, with otherwise unremarkable appearance of the myometrium. A nabothian cyst is present. The right ovary is not well defined. Sonographic measurements of either 3 x 3.2 x 2.4 cm or 5.2 x 5. 1 x 3.2 cm. A thick-walled, peripherally hyperemic collection in the right adnexa correlates to the a bscess on recent CT. The left ovary is not visualized due to positioning, technique, overlying bowel-gas, and/or body habi tus. IMPRESSION: 1. No further characterization of pelvic findings from the recent comparison CT exam. A thick walled cystic lesion in the right adnexa corresponds to the at least partially organized collection in cont inuity with the terminal ileum and cecum. Potential involvement of the right ovary is not well charac terized sonographically, and may be better performed at surgery (or pre-surgical MRI if necessary). 2. No acute finding of the uterus. Nonvisualized left ovary.
[2025-07-01 07:34] LABS: Hematocrit 30.7 % (36.0-46.0); Hemoglobin 10.9 g/dL (12.2-16.2); Mean Corpuscular Hemoglobin 31.3 pg (28.0-32.0); Mean Corpuscular Volume 88.3 fL (80.0-100.0); Nucleated Red Blood Cells % 0.2 %
[2025-07-01 07:41] LABS: Anion Gap 9 (5-15); Carbon Dioxide 25 mmol/L (20-31); Chloride 107 mmol/L (98-107); Potassium 3.5 mmol/L (3.5-5.1); Sodium 141 mmol/L (136-145)
[2025-07-01 07:42] LABS: Calcium 8.7 mg/dL (8.7-10.4)
[2025-07-01 07:46] LABS: Glucose 95 mg/dL (74-106)
[2025-07-01 07:47] LABS: BUN/Creatinine Ratio 12.7 (10.0-20.0)
[2025-07-01 07:48] LABS: Blood Urea Nitrogen 8 mg/dL (9-23)
[2025-07-01] MEDS: ACETAMINOPHEN 325 MG TAB PO PRN (09:09)
--- NOTE | 2025-07-01 10:06 | DVHPN2 ---
Progress Note - Dictate Date Seen: Jul 01, 2025 Medical Necessity Reason Pt with a Central, PICC or Fol: No Subjective Patient has more pain today than yesterday. vital signs Vital Sign Date Time Temp Pulse Resp B/P (MAP) Pulse Ox O2 Delivery O2 Flow Rate FiO2 07/01/25 05:00 98.0 46 16 132/77 (95) 97 98.0 06/30/25 20:00 Room Air* 0 21 Total Intake and Output 06/30/25 06/30/25 07/01/25 15:00 23:00 07:00 Intake Total 340 ml 600 ml 460 ml Balance 340 ml 600 ml 460 ml medications Current Medications Medications Dose Ordered Sig/Heather Route Start Time Stop Time Status Last Admin Dose Admin Piperacillin Sod/ Tazobactam Sod 100 ml @ 25 mls/hr Q8HR IV 06/29/25 14:00 07/01/25 06:36 25 MLS/HR Pantoprazole Sodium 40 mg DAILY IV 06/30/25 10:00 07/01/25 09:09 40 MG Enoxaparin Sodium 30 mg DAILY SC 06/30/25 10:00 Acetaminophen 650 mg Q4HP PRN PO 07/01/25 09:00 07/01/25 09:09 650 MG Methylprednisolone Sodium Succinate 40 mg Q8HR IV 07/01/25 14:00 UNV objective General: Well-developed well-nourished HEENT: NC/AT EOMI PERRLA O/P clear, no JVD or cervical lymphadenopathy, no scleral icterus Heart: Regular rate and rhythm, no murmurs rubs or gallops Lungs: Clear to auscultation bilaterally, no wheezes rales or rhonchi Abdomen: Soft, mild tenderness to palpation Extremity: No clubbing cyanosis or edema, no rashes or bruises Neuro: Cranial nerves 2-12 grossly intact, moves all four extremities, no asterixis laboratory and microbiology Laboratory Tests 07/01/25 06:30 Test 07/01/25 06:30 Range/Units Serum Glucose 95 74-106 mg/dL Problem List 1. Possible Crohn's disease Patient has more pain today Recommendations: 1. We will DC prednisone and start Solu-Medrol 2. Recommend general surgical consultation 3. Continue antibiotics 4. Clear liquid diet as tolerated 5. We will follow 6. Hold off on colonoscopy at this time 7. If patient is able to improve on steroids, we will switch to steroid taper with oral prednisone at discharge and patient will need to start biologic such as Remicade or Humira if a diagnosis of Crohn's is confirmed Assessment/Plan 1. Abdominal pain 2. Abnormal Kavitha of the CT scan with cecal wall thickening in possible terminal ileitis , and associated abscess 3. Transaminitis 4. Ovarian cyst 5. 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
[2025-07-01] MEDS ORDERED: D5W/SOD CHLO 0.9% 1,000 ML IV SCH (11:30)
[2025-07-01] MEDS ORDERED: methylPREDNISolone SOD SUCC 40 MG/ML VL IV SCH (14:00)
--- NOTE | 2025-07-01 19:40 | DVHPN2 ---
Subjective Abdominal pain is slightly improved according to her today. Still has right lower quadrant pain. Patient complained of some musculoskeletal upper back neck pain have due to positioning felt secondary to sleeping on a pillow. No nausea vomiting. Tolerating full liquid diet. Changes from previous H/P or p: No Changes Eyes: No Pain, No Vision change, No Conjunctivae inflammation, No Eyelid inflammation, No Other, No Redness ENT: No Ear pain, No Ear discharge, No Nose pain, No Nose discharge, No Nose congestion, No Mouth pain, No Mouth swelling, No Throat pain, No Throat swelling, No Other Cardiovascular: No Chest Pain, No Palpitations, No Orthopnea, No Paroxysmal Noc. Dyspnea, No Edema, No Lt Headedness, No Other Respiratory: No Cough, No Dry, No Shortness of breath, No SOB with excertion, No Wheezing, No Hemoptysis, No Pleuritic Pain, No Sputum, No Other Gastrointestinal: Abdominal Pain, Constipation Genitourinary: No Dysuria, No Frequency, No Incontinence, No Hematuria, No Retention, No Other Musculoskeletal: No other, No neck pain, No shoulder pain, No arm pain, No back pain, No hand pain, No leg pain, No foot pain Skin: No Rash, No Lesions, No Jaundice, No Bruising, No Other Objective Vitals Vital Signs Date Time Temp Pulse Resp B/P (MAP) Pulse Ox O2 Delivery O2 Flow Rate FiO2 07/01/25 17:00 98.0 53 18 110/68 (82) 95 98.0 07/01/25 08:00 Room Air* 0 21 Intake/Output Intake and Output 07/01/25 07:00 Intake Total 1400 ml Balance 1400 ml Intake Oral 1100 ml IV Total 300 ml # Voids 4 Exam Comfortable. No complaints. Requesting repeat colonoscopy while in the hospital. HEENT neck supple no JVD. Heart regular rate and rhythm. Lungs fair air movement without rales wheezes. Abdomen is soft. Mild tenderness to palpation in the right lower quadrant. No rebound or guarding. Nondistended. Positive active bowel sounds. Extremities no edema. Medications Current Medications Medications Dose Ordered Sig/Heather Route Start Time Stop Time Status Last Admin Dose Admin Piperacillin Sod/ Tazobactam Sod 100 ml @ 25 mls/hr Q8HR IV 06/29/25 14:00 07/01/25 14:04 25 MLS/HR Pantoprazole Sodium 40 mg DAILY IV 8/2/25 10:00 07/01/25 09:09 40 MG Enoxaparin Sodium 30 mg DAILY SC 06/30/25 10:00 Acetaminophen 650 mg Q4HP PRN PO 07/01/25 09:00 07/01/25 15:05 650 MG Laboratory Results Laboratory Tests 07/01/25 06:30 Chemistry Test 07/01/25 06:30 Calcium Level 8.7 mg/dL (8.7-10.4) Urinalysis Test 06/29/25 03:45 Urine Color Light-orange (Yellow) Urine Clarity Ex.turbid (Clear) Urine pH 6.0 (5.0-9.0) Urine Specific [place] 1.024 (1.001-1.035) Urine Protein 1+ (Negative) H Urine Ketones 1+ (Negative) H Urine Blood 1+ /uL (Negative) H Urine Nitrite Negative (Negative) Urine Bilirubin Negative (Negative) Urine Urobilinogen 2 mg/dL (Negative) H Urine Leukocyte Esterase 3+ /uL (Negative) Urine RBC 26 /hpf (0 - 4) Urine Microscopic WBC 239 /HPF (0-5) H Urine Squamous Epithelial Cells Many /hpf (<5) Urine Bacteria Few /hpf (None Seen) H Urine Hyaline Casts Few /lpf (0 - 2) Urine Mucus Moderate (None Seen) Urine Glucose Normal mg/dL (Normal) Microbiology Microbiology Date/Time Source Procedure Growth Status 06/29/25 05:48 Blood Blood Culture - Preliminary NO GROWTH AFTER 48 HOURS OF INCUBATION. Resulted 06/29/25 03:45 Voided Urine Urine Culture - Final Complete Assessment/Plan Assessment/Plan Given the pain slightly improved I will advance her diet to soft diet today. CT report of the abdomen and pelvis done on admission reviewed and there is a possible mentioned of possible fluid collection in the right lower quadrant region. She is evaluated by OBGYN ordered ultrasound which showed a cyst. Given no confirmed inflammatory bowel disease diagnosis I will DC the steroids given the possible fluid collection with the infection. We will only continue IV antibiotics for now. I will do a follow up CT of the abdomen and pelvis with oral and IV contrast tomorrow morning to further evaluate this fluid collection. If this is transferred to be possible abscess then she may need a drainage. We will have surgical as well as Interventional Radiology consultations. This is discussed with the patient along with the nurse at bedside at length regarding her possible diagnosis, need for follow up CT and possible drainage and antibiotics. She has verbalized understanding of the care and agree with the current care plan as outlined. Plan discussed with: Patient My Orders Orders - ROYAL WALKER MD Procedure Category Date Status Time * Surgical Consult CONS 07/01/25 Transmitted Npo Except Ice Chips BEBO 07/01/25 In Process 11:24 Npo Except For BEBO 07/01/25 In Process Medications 11:24 Comprehensive LAB 07/02/25 Verified Metabolic Panel 04:00 Complete Blood Count LAB 07/02/25 Verified 04:00 Soft Diet DIET 07/01/[address] Abd Pelvis W CT 07/02/25 Logged Con-Oral & Iv 06:00 * Radiologist Consult CONS 07/02/25 Transmitted 07:00 PTPTT LAB 07/02/25 Verified 04:00 Problem List: (1) Intra-abdominal abscess (2) Non-specific colitis Date of Service: Jul 01, 2025 Billing Provider: ROYAL WALKER MD Common Visit Codes: [id number] INP/OBS CARE(HIGH) ROYAL WALKER MD Jul 01, 2025 19:40
[2025-07-02] VITALS (7 sets, daily range): BP systolic 100–142; BP diastolic 57–80; PULSE 43–67; RESP 16–18; TEMP 97.6–98.6; O2SAT 93–97
[2025-07-02 07:23] LABS: Hematocrit 31.2 % (36.0-46.0); Hemoglobin 11.2 g/dL (12.2-16.2); Mean Corpuscular Hemoglobin 30.9 pg (28.0-32.0); Mean Corpuscular Volume 86.4 fL (80.0-100.0); Nucleated Red Blood Cells % 0.1 %
[2025-07-02 07:36] LABS: Albumin 3.7 g/dL (3.2-4.8); Anion Gap 12 (5-15); BUN/Creatinine Ratio 13.6 (10.0-20.0); Bilirubin, Total 0.4 mg/dL (0.2-1.0); Blood Urea Nitrogen 9 mg/dL (9-23); Calcium 8.9 mg/dL (8.7-10.4); Carbon Dioxide 25 mmol/L (20-31); Chloride 106 mmol/L (98-107); Glucose 95 mg/dL (74-106); Potassium 3.5 mmol/L (3.5-5.1); Sodium 143 mmol/L (136-145); Total Protein 6.3 g/dL (5.7-8.2)
[2025-07-02 07:37] LABS: Alanine Aminotransferase 108 U/L (7-40); Alkaline Phosphatase 156 U/L (46-116)
[2025-07-02] MEDS ORDERED: OMNIPAQUE 12mg/ml 500ml ORAL SOLUTION PO ONE (07:37)
[2025-07-02 07:40] LABS: INR 1.06 (0.9-1.15); Partial Thromboplastin Time 25.1 SEC (24.5-34.5); Prothrombin Time 11.2 sec (9.3-11.8)
[2025-07-02] MEDS ORDERED: IOHEXOL 300 MG/ML 100ML BOTTLE IJ ONE (10:01)
--- NOTE | 2025-07-02 12:22 | DVH ---
CT CT ABD PELVIS W CON-ORAL IV INDICATION: Follow up right lower quadrant abdominal fluid collection EXAM DATE: 07/02/2025 11:33 AM COMPARISON: US PELVIC on DOS: 06/30/25, CT CT AB PEL WITH IV CON ONLY on DOS: 06/29/25 RADIATION DOSE: CTDIvol: 6.72 mGy, DLP: 362.26 mGy*cm PROCEDURE: Helical CT images were obtained of the abdomen and pelvis with IV contrast Sagittal and co fili reconstructions are provided. ORAL CONTRAST: Yes ADDITIONAL IMAGES / REFORMATS: None All CT sca ns at this medical facility are performed using dose modulation techniques as appropriate to a perfor med exam including the following: Automated exposure control was utilized; adjustment of the MA and/o r KV according to patient size; and use of iterative reconstruction technique. FINDINGS: LUNG BASE: Mild bibasilar atelectasis. LIVER: Normal. GALLBLADDER AND BILIARY TREE: No calcified gallstones. Normal caliber wall. No intra- or extrahepatic biliary ductal dilation. PANCREAS: Normal. SPLEEN: Normal. BOWEL: Interval decrease in size of the RLQ fluid collection with a 3.2 cm ill-definted fluid collect ion remaining and adjacent inflammatory fat stranding. No oral contrast extravasation visualized. ADRENALS: Normal. KIDNEYS AND URETER: Normal. BLADDER: Normal. REPRODUCTIVE ORGANS: Normal. LYMPH NODES:No lymphadenopathy. PERITONEUM: No ascites or free air. No other fluid collection. VESSELS: Scattered atherosclerotic calcifications are noted. RETROPERITONEUM: Normal. ABDOMINAL WALL: Normal. BONES: Scattered osseous degenerative changes are noted. IMPRESSION: Interval decrease in size of the RLQ fluid collection with a 3.2 cm ill-definted fluid collection rem aining and adjacent inflammatory fat stranding. No oral contrast extravasation visualized.
--- NOTE | 2025-07-02 12:37 | DVHPN2 ---
Subjective Patient admits to slight improvement in her light lower quadrant pain. Mostly feels like a pressure sensation No fevers or chills. Status post colonoscopy three years ago Dr. Novoa Changes from previous H/P or p: No Changes Eyes: No Pain, No Vision change, No Conjunctivae inflammation, No Eyelid inflammation, No Other, No Redness ENT: No Ear pain, No Ear discharge, No Nose pain, No Nose discharge, No Nose congestion, No Mouth pain, No Mouth swelling, No Throat pain, No Throat swelling, No Other Cardiovascular: No Chest Pain, No Palpitations, No Orthopnea, No Paroxysmal Noc. Dyspnea, No Edema, No Lt Headedness, No Other Respiratory: No Cough, No Dry, No Shortness of breath, No SOB with excertion, No Wheezing, No Hemoptysis, No Pleuritic Pain, No Sputum, No Other Gastrointestinal: Abdominal Pain, Constipation Genitourinary: No Dysuria, No Frequency, No Incontinence, No Hematuria, No Retention, No Other Musculoskeletal: No other, No neck pain, No shoulder pain, No arm pain, No back pain, No hand pain, No leg pain, No foot pain Skin: No Rash, No Lesions, No Jaundice, No Bruising, No Other Objective Vitals Vital Signs Date Time Temp Pulse Resp B/P (MAP) Pulse Ox O2 Delivery O2 Flow Rate FiO2 07/02/25 08:46 98.4 49 18 117/57 (77) 95 98.4 07/02/25 08:00 Room Air* 0 21 Intake/Output Intake and Output 07/02/25 07:00 Intake Total 1700 ml Balance 1700 ml Intake Oral 1400 ml IV Total 300 ml # Voids 4 General Appearance: Alert, Oriented X3, No acute distress Lungs: Clear to auscultation, Normal air movement, Other Cardiovascular: Regular rate, Normal S1, Normal S2, No murmurs, Gallops, Rubs, Other Abdomen: Normal bowel sounds, Soft, No tenderness, No hepatospenomegaly, No masses, Other (Mild right lower quadrant tenderness) Medications Current Medications Medications Dose Ordered Sig/Heather Route Start Time Stop Time Status Last Admin Dose Admin Piperacillin Sod/ Tazobactam Sod 100 ml @ 25 mls/hr Q8HR IV 06/29/25 14:00 07/02/25 05:58 25 MLS/HR Pantoprazole Sodium 40 mg DAILY IV 06/30/25 10:00 07/01/25 09:09 40 MG Enoxaparin Sodium 30 mg DAILY SC 06/30/25 10:00 Acetaminophen 650 mg Q4HP PRN PO 07/01/25 09:00 07/01/25 22:20 650 MG Laboratory Results Laboratory Tests 07/02/25 06:15 Chemistry Test 07/02/25 06:15 Albumin 3.7 g/dL (3.2-4.8) Calcium Level 8.9 mg/dL (8.7-10.4) Total Protein 6.3 g/dL (5.7-8.2) Coagulation Test 07/02/25 06:15 Prothrombin Time 11.2 sec (9.3-11.8) Prothrombin Time INR 1.06 (0.9-1.15) Activated Partial Thromboplast Time 25.1 SEC (24.5-34.5) LFT Test 07/02/25 06:15 Alanine Aminotransferase (ALT) 108 U/L (7-40) H Alkaline Phosphatase 156 U/L (46-116) H Aspartate Amino Transferase (AST) 69 U/L (13-40) H Total Bilirubin 0.4 mg/dL (0.2-1.0) Urinalysis Test 06/29/25 03:45 Urine Color Light-orange (Yellow) Urine Clarity Ex.turbid (Clear) Urine pH 6.0 (5.0-9.0) Urine Specific [place] 1.024 (1.001-1.035) Urine Protein 1+ (Negative) H Urine Ketones 1+ (Negative) H Urine Blood 1+ /uL (Negative) H Urine Nitrite Negative (Negative) Urine Bilirubin Negative (Negative) Urine Urobilinogen 2 mg/dL (Negative) H Urine Leukocyte Esterase 3+ /uL (Negative) Urine RBC 26 /hpf (0 - 4) Urine Microscopic WBC 239 /HPF (0-5) H Urine Squamous Epithelial Cells Many /hpf (<5) Urine Bacteria Few /hpf (None Seen) H Urine Hyaline Casts Few /lpf (0 - 2) Urine Mucus Moderate (None Seen) Urine Glucose Normal mg/dL (Normal) Microbiology Microbiology Date/Time Source Procedure Growth Status 06/29/25 05:48 Blood Blood Culture - Preliminary NO GROWTH AFTER 72 HOURS OF INCUBATION. Resulted 06/29/25 03:45 Voided Urine Urine Culture - Final Complete Assessment/Plan Assessment/Plan Abdominal pain Possible Crohn's disease Abnormal CT scan results with cecal wall thickening and associated abscess Transaminitis Ovarian cyst Kidney stone Plan Discussed with Dr. Yasmany Caballero Surgical consult pending Ir consult recommended IV antibiotic Monitor labs We will continue to follow patient Plan discussed with: Patient, Other (RN) Date of Service: Jul 02, 2025 Billing Provider: MICHAEL KU Common Visit Codes: [id number] INP/OBS CARE(HIGH) MICHAEL KU Jul 02, 2025 12:37
--- NOTE | 2025-07-02 14:00 | DVHPN2 ---
Subjective Clinically stable. Tolerating soft diet. Patient had a follow up CT with oral and IV contrast today showed a improvement in right lower quadrant abscess. No extravasation of contrast noted. Radiologist felt location is not suitable for percutaneous drainage. Changes from previous H/P or p: No Changes Eyes: No Pain, No Vision change, No Conjunctivae inflammation, No Eyelid inflammation, No Other, No Redness ENT: No Ear pain, No Ear discharge, No Nose pain, No Nose discharge, No Nose congestion, No Mouth pain, No Mouth swelling, No Throat pain, No Throat swelling, No Other Cardiovascular: No Chest Pain, No Palpitations, No Orthopnea, No Paroxysmal Noc. Dyspnea, No Edema, No Lt Headedness, No Other Respiratory: No Cough, No Dry, No Shortness of breath, No SOB with excertion, No Wheezing, No Hemoptysis, No Pleuritic Pain, No Sputum, No Other Gastrointestinal: Abdominal Pain, Constipation Genitourinary: No Dysuria, No Frequency, No Incontinence, No Hematuria, No Retention, No Other Musculoskeletal: No other, No neck pain, No shoulder pain, No arm pain, No back pain, No hand pain, No leg pain, No foot pain Skin: No Rash, No Lesions, No Jaundice, No Bruising, No Other Objective Vitals Vital Signs Date Time Temp Pulse Resp B/P (MAP) Pulse Ox O2 Delivery O2 Flow Rate FiO2 07/02/25 13:00 98.3 47 16 119/57 (77) 96 98.3 07/02/25 08:00 Room Air* 0 21 Intake/Output Intake and Output 07/02/25 07:00 Intake Total 1700 ml Balance 1700 ml Intake Oral 1400 ml IV Total 300 ml # Voids 4 Exam Comfortable. No complaints. Abdomen is soft nontender positive bowel sounds. Nondistended. Heart regular rate and rhythm S1-S2. Lungs fair air movement without rales wheezes. Extremities no edema positive pulses. General Appearance: Alert, Oriented X3, No acute distress Lungs: Clear to auscultation, Normal air movement, Other Cardiovascular: Regular rate, Normal S1, Normal S2, No murmurs, Gallops, Rubs, Other Abdomen: Normal bowel sounds, Soft, No tenderness, No hepatospenomegaly, No masses, Other (Mild right lower quadrant tenderness) Medications Current Medications Medications Dose Ordered Sig/Heather Route Start Time Stop Time Status Last Admin Dose Admin Piperacillin Sod/ Tazobactam Sod 100 ml @ 25 mls/hr Q8HR IV 06/29/25 14:00 07/02/25 13:18 25 MLS/HR Pantoprazole Sodium 40 mg DAILY IV 06/30/25 10:00 07/02/25 13:18 40 MG Enoxaparin Sodium 30 mg DAILY SC 06/30/25 10:00 07/02/25 13:29 30 MG Acetaminophen 650 mg Q4HP PRN PO 07/01/25 09:00 07/01/25 22:20 650 MG Laboratory Results Laboratory Tests 07/02/25 06:15 Chemistry Test 07/02/25 06:15 Albumin 3.7 g/dL (3.2-4.8) Calcium Level 8.9 mg/dL (8.7-10.4) Total Protein 6.3 g/dL (5.7-8.2) Coagulation Test 07/02/25 06:15 Prothrombin Time 11.2 sec (9.3-11.8) Prothrombin Time INR 1.06 (0.9-1.15) Activated Partial Thromboplast Time 25.1 SEC (24.5-34.5) LFT Test 07/02/25 06:15 Alanine Aminotransferase (ALT) 108 U/L (7-40) H Alkaline Phosphatase 156 U/L (46-116) H Aspartate Amino Transferase (AST) 69 U/L (13-40) H Total Bilirubin 0.4 mg/dL (0.2-1.0) Urinalysis Test 06/29/25 03:45 Urine Color Light-orange (Yellow) Urine Clarity Ex.turbid (Clear) Urine pH 6.0 (5.0-9.0) Urine Specific [place] 1.024 (1.001-1.035) Urine Protein 1+ (Negative) H Urine Ketones 1+ (Negative) H Urine Blood 1+ /uL (Negative) H Urine Nitrite Negative (Negative) Urine Bilirubin Negative (Negative) Urine Urobilinogen 2 mg/dL (Negative) H Urine Leukocyte Esterase 3+ /uL (Negative) Urine RBC 26 /hpf (0 - 4) Urine Microscopic WBC 239 /HPF (0-5) H Urine Squamous Epithelial Cells Many /hpf (<5) Urine Bacteria Few /hpf (None Seen) H Urine Hyaline Casts Few /lpf (0 - 2) Urine Mucus Moderate (None Seen) Urine Glucose Normal mg/dL (Normal) Microbiology Microbiology Date/Time Source Procedure Growth Status 06/29/25 05:48 Blood Blood Culture - Preliminary NO GROWTH AFTER 72 HOURS OF INCUBATION. Resulted 06/29/25 03:45 Voided Urine Urine Culture - Final Complete Assessment/Plan Assessment/Plan Follow up CT confirms possible abscess contained with improvement. Therefore we will continue antibiotics. I will order a midline for at least another three weeks of IV antibiotics. Meantime we will have Infectious Disease consultation. Pending surgeon call consultation as well. Otherwise continue rest of supportive care and treatment. Encouraged activity out of bed ambulate as tolerated. Further clinical management per clinical course and pending evaluations and studies. Discussed with the patient regarding care plan at bedside. Plan discussed with: Patient My Orders Orders - ROYAL WALKER MD Procedure Category Date Status Time Ct Abd Pelvis W CT 07/02/25 Resulted Con-Oral & Iv 06:00 * Radiologist Consult CONS 07/02/25 Transmitted 07:00 Clear Liq Diet DIET 07/02/25 Transmitted Lunch * Infectious [place]- DrSadi CONS 07/02/25 Transmitted K Michael 13:58 Insert Midline ORDERS 07/02/25 Transmitted 13:58 Problem List: (1) Intra-abdominal abscess (2) Non-specific colitis Date of Service: Jul 02, 2025 Billing Provider: ROYAL WALKER MD Common Visit Codes: [id number] INP/OBS CARE(MOD) ROYAL WALKER MD Jul 02, 2025 14:00
--- NOTE | 2025-07-02 17:50 | DVHINCON2 ---
Date of service: Jul 02, 2025 Family History: Diabetes mellitus G8 MOTHER FHx: hypertension G8 FATHER Allergies: Coded Allergies: Magnesium (Verified Allergy, Intermediate, 08/18/24) Penicillins (Verified Allergy, Unknown, 08/18/24) Sulfa Antibiotics (Verified Allergy, Unknown, 08/18/24) Home Meds No Active Prescriptions or Reported Meds Vital Signs Vital Signs Date Time Temp Pulse Resp B/P (MAP) Pulse Ox O2 Delivery O2 Flow Rate FiO2 07/02/25 13:00 98.3 47 16 119/57 (77) 96 98.3 07/02/25 08:00 Room Air* 0 21 Labs/Diagnostic Data Labs Test 07/02/25 06:15 07/01/25 12:09 06/29/25 09:52 06/29/25 05:48 Range/Units White Blood Count 9.4 4.4-10.8 10^3/uL Red Blood Count 3.61 L 4.0-5.20 10^6/uL Hemoglobin 11.2 L 12.2-16.2 g/dL Hematocrit 31.2 L 36.0-46.0 % Mean Corpuscular Volume 86.4 80.0-100.0 fL Mean Corpuscular Hemoglobin 30.9 28.0-32.0 pg Mean Corpuscular Hemoglobin Concent 35.8 32.0-36.0 g/dL Red Cell Distribution Width 12.7 11.8-14.3 % Platelet Count 305 140-450 10^3/uL Mean Platelet Volume 7.8 6.9-10.8 fL Neutrophils (%) (Auto) 68.6 37.0-80.0 % Lymphocytes (%) (Auto) 23.8 10.0-50.0 % Monocytes (%) (Auto) 7.2 0.0-12.0 % Eosinophils (%) (Auto) 0.1 0.0-7.0 % Basophils (%) (Auto) 0.3 0.0-2.0 % Neutrophils # (Auto) 6.4 1.6-8.6 10 ^3/uL Lymphocytes # (Auto) 2.2 0.4-5.4 10 ^3/uL Monocytes # (Auto) 0.7 0-1.3 10 ^3/uL Eosinophils # (Auto) 0 0-0.8 10 ^3/uL Basophils # (Auto) 0 0-0.2 10 ^3/uL Nucleated Red Blood Cells 0.1 % Prothrombin Time 11.2 9.3-11.8 sec Prothrombin Time INR 1.06 0.9-1.15 Activated Partial Thromboplast Time 25.1 24.5-34.5 SEC Sodium Level 143 136-145 mmol/L Potassium Level 3.5 3.5-5.1 mmol/L Chloride Level 106 98-107 mmol/L Carbon Dioxide Level 25 20-31 mmol/L Anion Gap 12 5-15 Blood Urea Nitrogen 9 9-23 mg/dL Creatinine 0.66 0.550-1.02 mg/dL Glomerular Filtration Rate Calc 101 >90 mL/min BUN/Creatinine Ratio 13.6 10.0-20.0 Serum Glucose 95 74-106 mg/dL Calcium Level 8.9 8.7-10.4 mg/dL Total Bilirubin 0.4 0.2-1.0 mg/dL Aspartate Amino Transferase (AST) 69 H 13-40 U/L Alanine Aminotransferase (ALT) 108 H 7-40 U/L Alkaline Phosphatase 156 H 46-116 U/L Total Protein 6.3 5.7-8.2 g/dL Albumin 3.7 3.2-4.8 g/dL Erythrocyte Sedimentation Rate 37 H 0-20 mm/hr C-Reactive Protein High Sensitivity 6.84 H <1.0 mg/dL Saccharomyces cerevisiae IgG Ab <20.0 0.0-24.9 Units Saccharomyces cerevisiae IgA Ab <20.0 0.0-24.9 Units Lactic Acid Level 0.9 0.4-2.0 mmol/L Test 06/29/25 04:04 06/29/25 03:45 Range/Units Hemoglobin A1c 5.5 <5.7 % A1C B-Type Natriuretic Peptide 22.95 0-100 pg/mL Lipase 41 12-53 U/L Thyroid Stimulating Hormone (TSH) 3.68 0.55-4.78 uIU/mL Urine Color Light-orange Yellow Urine Clarity Ex.turbid Clear Urine pH 6.0 5.0-9.0 Urine Specific [place] 1.024 1.001-1.035 Urine Protein 1+ H Negative Urine Ketones 1+ H Negative Urine Blood 1+ H Negative /uL Urine Nitrite Negative Negative Urine Bilirubin Negative Negative Urine Urobilinogen 2 H Negative mg/dL Urine Leukocyte Esterase 3+ Negative /uL Urine RBC 26 0 - 4 /hpf Urine Microscopic WBC 239 H 0-5 /HPF Urine Squamous Epithelial Cells Many <5 /hpf Urine Bacteria Few H None Seen /hpf Urine Hyaline Casts Few 0 - 2 /lpf Urine Mucus Moderate None Seen Urine Glucose Normal Normal mg/dL Microbiology Date/Time Source Procedure Growth Status 06/29/25 05:48 Blood Blood Culture - Preliminary NO GROWTH AFTER 72 HOURS OF INCUBATION. Resulted 06/29/25 03:45 Voided Urine Urine Culture - Final Complete Assessment [id number] C/O RLQ PAIN PAIN RESOLVING AFEBRILE VSS ABD SOFT TENDER RLQ REPEAT CT SCAN WITH PO CONTRAST SHOWING RESOLVING INFLAMMATORY BOWEL DISEASE CONTINUE CLOSE OBSERVATION CONSIDER TRANSFER TO HIGHER LEVEL OF CARE IF SURGERY CONSIDERED AND INDICATED Plan discussed with: Patient KAMILLE AGUILAR MD Jul 02, 2025 17:50
--- NOTE | 2025-07-02 22:38 | DVHINCON2 ---
DATE OF CONSULTATION: 07/02/2025 HISTORY OF PRESENT ILLNESS: This patient is referred to me for abdominal pain. She is 59 years old. Her pain started in the right lower abdomen, now feeling better. No nausea or vomiting. No hematemesis or melena. No bleeding per rectum. She had a bowel movement yesterday but not today. No history of diarrhea. PAST MEDICAL HISTORY: Gastritis, benign colon polyps ____ colonoscopy being done x2. PAST SURGICAL HISTORY: Two C-sections, breast augmentation. PHYSICAL EXAMINATION: VITAL SIGNS: Afebrile. Stable signs. HEENT: No evidence of pallor, cyanosis, or jaundice. NECK: Supple. Nontender with no thyromegaly or lymphadenopathy. CHEST AND LUNGS: Clear. HEART: Within normal limits. ABDOMEN: Soft. She is minimally tender in the right lower abdomen. No rebound. EXTREMITIES: Unremarkable. NEUROLOGIC: Intact. CLINICAL IMPRESSION: Rule out ileocolonic possible Crohn's disease, inflammatory bowel disease, and there is a complication with regards to the inflammation resulting in a small abscess collection or fluid collection that is resolving on the repeat CT scan and she is responding to conservative management. At this point, no acute surgical intervention is indicated. PLAN: The patient will be is to keep her n.p.o., IV antibiotics and start her on TPN and consider home TPN if discharged based upon ongoing evaluation. Isaias Novoa MD RG/SUB/HERMANI TID: [id number] RECEIPT: [id number] cc: John Reed MD, Hugo Josue MD
[2025-07-02] MEDS ORDERED: TPN PER PHARMACY 0 ML IV SCH (23:45)
[2025-07-03] VITALS (7 sets, daily range): BP systolic 106–113; BP diastolic 57–80; PULSE 48–71; RESP 17–18; TEMP 97.7–99.2; O2SAT 95–98
[2025-07-03 05:46] LABS: Albumin 3.8 g/dL (3.2-4.8); Anion Gap 8 (5-15); BUN/Creatinine Ratio 8.2 (10.0-20.0); Bilirubin, Total 0.5 mg/dL (0.2-1.0); Calcium 8.9 mg/dL (8.7-10.4); Carbon Dioxide 28 mmol/L (20-31); Chloride 106 mmol/L (98-107); Glucose 80 mg/dL (74-106); Magnesium 2.3 mg/dL (1.6-2.6); Potassium 3.6 mmol/L (3.5-5.1); Sodium 142 mmol/L (136-145); Total Protein 6.3 g/dL (5.7-8.2)
[2025-07-03 05:51] LABS: Alanine Aminotransferase 91 U/L (7-40); Alkaline Phosphatase 148 U/L (46-116); Blood Urea Nitrogen 6 mg/dL (9-23); Triglycerides 221 mg/dL (< 150)
--- NOTE | 2025-07-03 14:40 | DVHPN2 ---
Subjective Clinically stable. Re-evaluated by general surgeon recommending NPO and to start TPN. Patient had a PICC line placed this morning. No complaints of abdominal pain Changes from previous H/P or p: No Changes Gastrointestinal: Abdominal Pain, Constipation Objective Vitals Vital Signs Date Time Temp Pulse Resp B/P (MAP) Pulse Ox O2 Delivery O2 Flow Rate FiO2 07/03/25 13:00 98.1 66 18 113/80 (91) 95 98.1 07/03/25 08:00 Room Air* 0 21 Intake/Output Intake and Output 07/03/25 07:00 Intake Total 580 ml Balance 580 ml Intake Oral 480 ml IV Total 100 ml # Voids 4 Exam Comfortable. No complaints. Abdomen is soft nontender positive bowel sounds. Nondistended. Heart regular rate and rhythm S1-S2. Lungs fair air movement without rales wheezes. Extremities no edema positive pulses. General Appearance: Alert, Oriented X3, No acute distress Lungs: Clear to auscultation, Normal air movement, Other Cardiovascular: Regular rate, Normal S1, Normal S2, No murmurs, Gallops, Rubs, Other Abdomen: Normal bowel sounds, Soft, No tenderness, No hepatospenomegaly, No masses, Other (Mild right lower quadrant tenderness) Medications Current Medications Medications Dose Ordered Sig/Heather Route Start Time Stop Time Status Last Admin Dose Admin Piperacillin Sod/ Tazobactam Sod 100 ml @ 25 mls/hr Q8HR IV 06/29/25 14:00 07/03/25 13:48 25 MLS/HR Pantoprazole Sodium 40 mg DAILY IV 06/30/25 10:00 07/03/25 10:20 40 MG Enoxaparin Sodium 30 mg DAILY SC 06/30/25 10:00 07/03/25 10:20 30 MG Acetaminophen 650 mg Q4HP PRN PO 07/01/25 09:00 07/01/25 22:20 650 MG Amino Acids 0 ml @ 0 mls/hr PER PHARMACY IV 07/02/25 23:45 Sodium Chloride 10 ml QSHIFT@10,22 IV 07/03/25 22:00 Diagnostic Test (Pha) 1 strip Q6HR 07/04/25 00:00 Insulin Human Regular FOLLOW SLIDING SCALE Q6HR SC 07/04/25 00:00 Dextrose 50 ml UD IV 07/04/25 00:00 Fat Emulsion Intravenous 50 ml/ Potassium Chloride 20 meq/ Multivitamins 10 ml/Chromium/ Copper/Manganese/ Zinc 1 ml/Amino Acids/Dextrose/ Purified Water 1,071 ml @ 45 mls/hr [id number] IV 07/03/25 22:00 07/04/25 21:59 Laboratory Results Laboratory Tests 07/02/25 06:15 07/03/25 05:15 Chemistry Test 07/03/25 05:15 Albumin 3.8 g/dL (3.2-4.8) Calcium Level 8.9 mg/dL (8.7-10.4) Magnesium Level 2.3 mg/dL (1.6-2.6) Phosphorus Level 4.6 mg/dL (2.4-5.1) Total Protein 6.3 g/dL (5.7-8.2) Lipid panel Test 07/03/25 05:15 Triglycerides Level 221 mg/dL (< 150) H LFT Test 07/03/25 05:15 Alanine Aminotransferase (ALT) 91 U/L (7-40) H Alkaline Phosphatase 148 U/L (46-116) H Aspartate Amino Transferase (AST) 43 U/L (13-40) H Total Bilirubin 0.5 mg/dL (0.2-1.0) Urinalysis Test 06/29/25 03:45 Urine Color Light-orange (Yellow) Urine Clarity Ex.turbid (Clear) Urine pH 6.0 (5.0-9.0) Urine Specific [place] 1.024 (1.001-1.035) Urine Protein 1+ (Negative) H Urine Ketones 1+ (Negative) H Urine Blood 1+ /uL (Negative) H Urine Nitrite Negative (Negative) Urine Bilirubin Negative (Negative) Urine Urobilinogen 2 mg/dL (Negative) H Urine Leukocyte Esterase 3+ /uL (Negative) Urine RBC 26 /hpf (0 - 4) Urine Microscopic WBC 239 /HPF (0-5) H Urine Squamous Epithelial Cells Many /hpf (<5) Urine Bacteria Few /hpf (None Seen) H Urine Hyaline Casts Few /lpf (0 - 2) Urine Mucus Moderate (None Seen) Urine Glucose Normal mg/dL (Normal) Microbiology Microbiology Date/Time Source Procedure Growth Status 06/29/25 05:48 Blood Blood Culture - Preliminary NO GROWTH AFTER 72 HOURS OF INCUBATION. Resulted 06/29/25 03:45 Voided Urine Urine Culture - Final Complete Assessment/Plan Assessment/Plan Continue TPN and IV antibiotics via PICC line. We will have social Service involved arrange for home IV antibiotics and TPN for three weeks. Otherwise continue rest of supportive care and treatment. Once these are arranged she can be discharged home. Discussed with the patient at bedside regarding care plan. Plan discussed with: Patient, Other My Orders Orders - ROYAL WALKER MD Procedure Category Date Status Time * Glass Loading Equipment Tender CONS 07/03/25 Transmitted Consult Date of Service: Jul 03, 2025 Billing Provider: ROYAL WALKER MD Common Visit Codes: [id number] INP/OBS CARE(MOD) ROYAL WALKER MD Jul 03, 2025 14:40
--- NOTE | 2025-07-03 15:42 | DVHINCON2 ---
Date of service: Jul 03, 2025 Family History: Diabetes mellitus G8 MOTHER FHx: hypertension G8 FATHER Allergies: Coded Allergies: Magnesium (Verified Allergy, Intermediate, 08/18/24) Penicillins (Verified Allergy, Unknown, 08/18/24) Sulfa Antibiotics (Verified Allergy, Unknown, 08/18/24) Home Meds No Active Prescriptions or Reported Meds Current Medications Current Medications Medications (Trade) Dose Ordered Sig/Heather Route PRN Reason Start Time Stop Time Status Last Admin Amino Acids 0 ml @ 0 mls/hr PER PHARMACY IV 07/02/25 23:45 Sodium Chloride (Saline Lock Ns) 10 ml QSHIFT@10,22 IV 07/03/25 22:00 Multivitamins 10 ml/Chromium/ Copper/Manganese/ Zinc 1 ml/ Potassium Chloride 20 meq/ Amino Acids/ Dextrose 1,021 ml @ 42 mls/hr [id number] IV 07/03/25 22:00 07/03/25 13:42 DC Diagnostic Test (Pha) (Accu-Chek Comfort Curve T) 1 strip Q6HR 07/04/25 00:00 Insulin Human Regular (InsuLIN R) FOLLOW SLIDING SCALE Q6HR SC 07/04/25 00:00 Dextrose 50 ml UD IV 07/04/25 00:00 Fat Emulsion Intravenous 50 ml/ Potassium Chloride 20 meq/ Multivitamins 10 ml/Chromium/ Copper/Manganese/ Zinc 1 ml/Amino Acids/Dextrose/ Purified Water 1,071 ml @ 45 mls/hr [id number] IV 07/03/25 22:00 07/04/25 21:59 Vital Signs Vital Signs Date Time Temp Pulse Resp B/P (MAP) Pulse Ox O2 Delivery O2 Flow Rate FiO2 07/03/25 13:00 98.1 66 18 113/80 (91) 95 98.1 07/03/25 08:00 Room Air* 0 21 Labs/Diagnostic Data Labs Test 07/03/25 05:15 07/02/25 06:15 07/01/25 12:09 06/29/25 09:52 Range/Units Sodium Level 142 136-145 mmol/L Potassium Level 3.6 3.5-5.1 mmol/L Chloride Level 106 98-107 mmol/L Carbon Dioxide Level 28 20-31 mmol/L Anion Gap 8 5-15 Blood Urea Nitrogen 6 L 9-23 mg/dL Creatinine 0.73 0.550-1.02 mg/dL Glomerular Filtration Rate Calc 95 >90 mL/min BUN/Creatinine Ratio 8.2 L 10.0-20.0 Serum Glucose 80 74-106 mg/dL Calcium Level 8.9 8.7-10.4 mg/dL Phosphorus Level 4.6 2.4-5.1 mg/dL Magnesium Level 2.3 1.6-2.6 mg/dL Total Bilirubin 0.5 0.2-1.0 mg/dL Aspartate Amino Transferase (AST) 43 H 13-40 U/L Alanine Aminotransferase (ALT) 91 H 7-40 U/L Alkaline Phosphatase 148 H 46-116 U/L Total Protein 6.3 5.7-8.2 g/dL Albumin 3.8 3.2-4.8 g/dL Triglycerides Level 221 H < 150 mg/dL White Blood Count 9.4 4.4-10.8 10^3/uL Red Blood Count 3.61 L 4.0-5.20 10^6/uL Hemoglobin 11.2 L 12.2-16.2 g/dL Hematocrit 31.2 L 36.0-46.0 % Mean Corpuscular Volume 86.4 80.0-100.0 fL Mean Corpuscular Hemoglobin 30.9 28.0-32.0 pg Mean Corpuscular Hemoglobin Concent 35.8 32.0-36.0 g/dL Red Cell Distribution Width 12.7 11.8-14.3 % Platelet Count 305 140-450 10^3/uL Mean Platelet Volume 7.8 6.9-10.8 fL Neutrophils (%) (Auto) 68.6 37.0-80.0 % Lymphocytes (%) (Auto) 23.8 10.0-50.0 % Monocytes (%) (Auto) 7.2 0.0-12.0 % Eosinophils (%) (Auto) 0.1 0.0-7.0 % Basophils (%) (Auto) 0.3 0.0-2.0 % Neutrophils # (Auto) 6.4 1.6-8.6 10 ^3/uL Lymphocytes # (Auto) 2.2 0.4-5.4 10 ^3/uL Monocytes # (Auto) 0.7 0-1.3 10 ^3/uL Eosinophils # (Auto) 0 0-0.8 10 ^3/uL Basophils # (Auto) 0 0-0.2 10 ^3/uL Nucleated Red Blood Cells 0.1 % Prothrombin Time 11.2 9.3-11.8 sec Prothrombin Time INR 1.06 0.9-1.15 Activated Partial Thromboplast Time 25.1 24.5-34.5 SEC Erythrocyte Sedimentation Rate 37 H 0-20 mm/hr C-Reactive Protein High Sensitivity 6.84 H <1.0 mg/dL Saccharomyces cerevisiae IgG Ab <20.0 0.0-24.9 Units Saccharomyces cerevisiae IgA Ab <20.0 0.0-24.9 Units Test 06/29/25 05:48 06/29/25 04:04 06/29/25 03:45 Range/Units Lactic Acid Level 0.9 0.4-2.0 mmol/L Hemoglobin A1c 5.5 <5.7 % A1C B-Type Natriuretic Peptide 22.95 0-100 pg/mL Lipase 41 12-53 U/L Thyroid Stimulating Hormone (TSH) 3.68 0.55-4.78 uIU/mL Urine Color Light-orange Yellow Urine Clarity Ex.turbid Clear Urine pH 6.0 5.0-9.0 Urine Specific [place] 1.024 1.001-1.035 Urine Protein 1+ H Negative Urine Ketones 1+ H Negative Urine Blood 1+ H Negative /uL Urine Nitrite Negative Negative Urine Bilirubin Negative Negative Urine Urobilinogen 2 H Negative mg/dL Urine Leukocyte Esterase 3+ Negative /uL Urine RBC 26 0 - 4 /hpf Urine Microscopic WBC 239 H 0-5 /HPF Urine Squamous Epithelial Cells Many <5 /hpf Urine Bacteria Few H None Seen /hpf Urine Hyaline Casts Few 0 - 2 /lpf Urine Mucus Moderate None Seen Urine Glucose Normal Normal mg/dL Microbiology Date/Time Source Procedure Growth Status 06/29/25 05:48 Blood Blood Culture - Preliminary NO GROWTH AFTER 72 HOURS OF INCUBATION. Resulted 06/29/25 03:45 Voided Urine Urine Culture - Final Complete Problems(with codes): (1) Non-specific colitis (2) Intra-abdominal abscess Plan/Recommendation ASSESSMENT AND PLAN: ID Problem List: \-- Crohn's disease \-- RLQ abscess/fluid collection \-- Cecal wall thickening/terminal ileitis \-- Ovarian cyst \-- Colon polyps \-- Gastritis Assessment This is a 59 y.o. female with a past medical history of Crohn's disease, gastritis, ovarian cyst, and colon polyps, who presents with right and left lower quadrant abdominal pain ongoing for the past 24 weeks. The pain is rated 5/10 and worsens in the left lower quadrant, radiating to the right. No associated nausea, vomiting, or diarrhea. She notes intermittent fevers and chills, but denies blood in stool during this encounter. On admission, patient was found to have an elevated WBC (18.4), with normal hemoglobin, platelets, creatinine, and BUN. Urinalysis showed significant pyuria with positive leukocyte esterase but negative nitrites; urine and blood cultures pending, no evidence of UTI. CT imaging demonstrated cecal wall thickening and terminal ileal inflammation with intramural edema, associated with a pericecal abscess (ill-defined fluid collection, ~3.2 cm) and ovarian cyst. No evidence of oral contrast extravasation. Pelvic ultrasound could not further characterize the findings. Repeat imaging confirmed persistent fluid collection with adjacent inflammatory changes. Patient is intolerant of oral intake and is on TPN. Her abdominal pain has improved over the last 24 hours. IR has evaluated and found the abscess is not amenable to percutaneous drainage. Infectious Disease and General Surgery recommend IV Zosyn and continued inpatient monitoring. Given her Crohns and the ambiguous origin of the abscess (cecal vs. ovarian), broad coverage for anaerobes is advised. Penicillin allergy (mild hives) is noted, but she is tolerating Zosyn. Outpatient follow-up in three weeks with repeat CT is planned to confirm resolution. Plan: \-- Continue IV Zosyn (monitor reaction due to penicillin allergy), recommend picc line and 3 weeks continuous Zosyn with TPN. \-- Continue TPN; NPO until improved tolerance \-- Monitor abdominal pain, clinical stability, and laboratory markers \-- Repeat CT imaging in 3 weeks in ID clinic \-- Monitor urine/blood culture results \-- Stool studies (including blood, calprotectin) to differentiate Crohn's flare vs. infection \-- Screen for sexually transmitted infections as indicated (GC/chlamydia) \-- Multidisciplinary follow-up with Infectious Diseases and General Surgery Isolation Precautions: standard \*Assessment and plan were discussed with the patient as written above \*Plan is subject to change pending new clinical data. Updates may be added as an addendum at the bottom (OR TOP) of this note. Thank you for interesting consult. ID will continue to follow. Please contact Infectious Disease for any questions or concerns. Prosper Rodriguez M.D. [facility] Ph: ? Teams text: Electronically signed by: Prosper Rodriguez MD, 07/03/2025 \ History: The patient's chart and medications were reviewed in detail and the patient was seen and examined. History obtained from: patient Heidy Crooks is a 59 y.o. female with a past medical history of Crohn's disease, gastritis, ovarian cyst, and colon polyps who presents with right and left lower quadrant pain ongoing for the last 24 weeks. Pain rated 5/10, most pronounced in the left lower quadrant but radiates to the right side. Denies nausea, vomiting, diarrhea. Reports fevers, chills. Denies blood in stool. No smoking, alcohol, or recreational drug use. Allergic to sulfa drugs, nitrofurantoin, and has mild hives with penicillin. Currently tolerating Zosyn in the hospital. Surgical history includes two C- sections and breast augmentation. Currently on Zosyn and prednisone. Review of Systems: A complete 10 system review of systems was completed and negative except as noted in the HPI or here. ROS: -CONSTITUTIONAL: Reports fevers and chills. Denies weight loss. -HEENT: Denies changes in vision and hearing. -RESPIRATORY: Denies shortness of breath and cough. -CARDIOVASCULAR: Denies palpitations and chest pain. -GASTROINTESTINAL: Reports ongoing abdominal pain (left and right lower quadrants). Denies nausea, vomiting, diarrhea, and blood in stool. -GENITOURINARY: No urinary symptoms reported. See labs. -MUSCULOSKELETAL: Denies myalgia and joint pain. -SKIN: Denies rash and pruritus. -NEUROLOGICAL: Denies headache and syncope. -PSYCHIATRIC: Denies recent changes in mood, anxiety, and depression. Past Medical History: -Crohn's disease -Gastritis -Ovarian cyst -Colon polyps Past Surgical History: -Two sections -Breast augmentation Home Medications: -Zosyn (inpatient) -Prednisone Allergies: -Sulfa drugs (reaction not specified) -Nitrofurantoin (reaction not specified) -Penicillin (mild hives; patient tolerating Zosyn in hospital) Family History: Not provided in transcript. Social History: No recreational drug use, tobacco, or alcohol use. Marital, sexual, and occupational history not provided. Social Determinants of Health: Not provided in transcript. Objective: Vital Signs: Not provided in transcript. Physical Exam: General: NAD Neck: Supple. No masses. HEENT: PERRL. Normal lids and conjunctiva. Moist mucous membranes. Oropharynx without lesions, exudates or excessive erythema. Normal appearance of the external aspects of the nose and ears. Heart: Regular rhythm, normal rate. No murmur. No lower extremity edema. Lungs: Normal respiratory effort. Clear to auscultation bilaterally. No wheezes. No crackles. Abdomen: Mild tenderness in left lower quadrant. Abdomen: Soft. Non-tender otherwise. Non-distended. No masses or abdominal hernia. Msk: No digital cyanosis. Normal strength and tone in all 4 limbs Skin: Warm and dry, no rashes. Neuro: Alert. No facial droop or slurred speech. Extra-ocular movements intact. Sensation intact to soft touch in all 4 limbs. Psych: Appropriate mood. Full affect. Oriented to person, place, time, and situation. Lines: Not provided in transcript. Diagnostic Studies: Available diagnostic studies reviewed. Significant results: -WBC 18.4, hemoglobin 13.7, platelets 388, creatinine 0.79, BUN 15 -Urinalysis: 239 pyuria, 3+ leukocyte esterase, negative nitrites -CT abdomen/pelvis: Cecal wall thickening, terminal ileitis, pericecal abscess, intramural edema, ovarian cyst -Repeat CT: Right lower quadrant fluid collection (3.2 cm) remains with adjacent inflammatory fat stranding -Liver ultrasound: 0.5 cm nonobstructing stone in right kidney -Blood cultures pending; urine cultures pending Pertinent Imaging: -CT abdomen/pelvis: Cecal wall thickening, terminal ileitis, pericecal abscess (~3.2 cm) -Pelvic ultrasound: No further characterization of pelvic findings -Liver US: Nonobstructing right renal stone Today's Encounter date: 07/03/2025 Patient Name: Valeriy Provider: Prosper Rodriguez Plan discussed with: Patient PROSPER RODRIGUEZ MD Jul 03, 2025 15:41
--- NOTE | 2025-07-03 16:19 | DVHPN2 ---
Progress Note Date Seen: Jul 03, 2025 Medical Necessity Reason Pt with a Central, PICC or Fol: No Objective vital signs Vital Sign Date Time Temp Pulse Resp B/P (MAP) Pulse Ox O2 Delivery O2 Flow Rate FiO2 07/03/25 13:00 98.1 66 18 113/80 (91) 95 98.1 07/03/25 08:00 Room Air* 0 21 Total Intake and Output 07/02/25 07/02/25 07/03/25 15:00 23:00 07:00 Intake Total 580 ml 0 ml Balance 580 ml 0 ml medications Current Medications Medications Dose Ordered Sig/Heather Route Start Time Stop Time Status Last Admin Dose Admin Piperacillin Sod/ Tazobactam Sod 100 ml @ 25 mls/hr Q8HR IV 06/29/25 14:00 07/03/25 13:48 25 MLS/HR Pantoprazole Sodium 40 mg DAILY IV 06/30/25 10:00 07/03/25 10:20 40 MG Enoxaparin Sodium 30 mg DAILY SC 06/30/25 10:00 07/03/25 10:20 30 MG Acetaminophen 650 mg Q4HP PRN PO 07/01/25 09:00 07/01/25 22:20 650 MG Amino Acids 0 ml @ 0 mls/hr PER PHARMACY IV 07/02/25 23:45 Sodium Chloride 10 ml QSHIFT@10,22 IV 07/03/25 22:00 Diagnostic Test (Pha) 1 strip Q6HR 07/04/25 00:00 Insulin Human Regular FOLLOW SLIDING SCALE Q6HR SC 07/04/25 00:00 Dextrose 50 ml UD IV 07/04/25 00:00 Fat Emulsion Intravenous 50 ml/ Potassium Chloride 20 meq/ Multivitamins 10 ml/Chromium/ Copper/Manganese/ Zinc 1 ml/Amino Acids/Dextrose/ Purified Water 1,071 ml @ 45 mls/hr [id number] IV 07/03/25 22:00 07/04/25 21:59 laboratory and microbiology Laboratory Tests 07/03/25 05:15 07/02/25 06:15 Test 07/03/25 05:15 Range/Units Serum Glucose 80 74-106 mg/dL Microbiology Date/Time Source Procedure Growth Status 06/29/25 05:48 Blood Blood Culture - Preliminary NO GROWTH AFTER 72 HOURS OF INCUBATION. Resulted 06/29/25 03:45 Voided Urine Urine Culture - Final Complete Problem List/Assessment/Plan Problem List/Assessment/Plan AFEBRILE VSS ABD SOFT REPEAT CT SCAN ABD PELVIS RESOLVING FLUID COLLECTION CONTINUE CLOSE OBSERVATION Plan discussed with: Other My Orders My Orders Orders - KAMILLE AGUILAR MD Procedure Category Date Status Time Npo (Nothing By DIET 07/02/25 Transmitted Mouth) Diet Dinner Tpn Per Pharmacy [facility] 07/02/25 In Process 17:49 * Picc Line Consult CONS 07/02/25 Transmitted 17:49 Tpn Per Pharmacy [facility] 07/02/25 In Process 23:45 Change Dressing Prn [facility] 07/03/25 In Process 10:12 Sodium Chloride Lock [facility] 07/03/25 In Process (Saline Lock Ns) 22:00 Do Not Use Picc For [facility] 07/03/25 In Process Blood Cult 10:12 May Draw Blood From [facility] 07/03/25 In Process Picc 10:12 Ok To Use Picc [facility] 07/03/25 In Process 10:12 Change Picc Dressing [facility] 07/03/25 In Process Q7 Days 10:12 Magnesium LAB 07/04/25 Verified 05:00 Phosphorus LAB 07/04/25 Verified 06:00 Comprehensive LAB 07/04/25 Verified Metabolic Panel 05:00 Glucose Blood [facility] 07/04/25 In Process (Accu-Chek Comfort 00:00 Insulin R (Human) PHA 07/04/25 In Process (Insulin R) 00:00 Dextrose 50% Syringe PHA 07/04/25 In Process 00:00 Amino Acid PHA 07/03/25 In Process Infusion... W/Fat 22:00 Nursing Protocol For 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
[2025-07-03] MEDS ORDERED: CLINIMIX PER PHARMACY 0 ML IV SCH (16:30)
--- NOTE | 2025-07-03 18:30 | DVHPN2 ---
Progress Note Date Seen: Jul 03, 2025 Resident Creating Document: RAMA DENIS RESIDENT Has the PT tested + for MRSA If YES, has PT been informed?: No Medical Necessity Reason Pt with a Central, PICC or Fol: No Subjective Review of Systems Brief Gist of Todays Progress, Treatment, Labs, Imaging, and Plan * Pain: Much improved; minimal RLQ tenderness on exam. * Diet: NPO, on TPN with Clinimix and IV lipids via PICC. * Antibiotics: IV Piperacillin-Tazobactam (Zosyn), tolerated well. * Labs: * WBC improved: 18.4 ? 9.4 * LFTs: Mildly elevated AST 43, ALT 91, ALP 148; total bilirubin 0.5 consistent with hepatic steatosis. * CRP: 6.84 (elevated), ESR: 37 (elevated). * IBD markers: S. cerevisiae IgG/IgA <20, atypical p-ANCA <1:20 negative. * Imaging: * CT Abd/Pelvis (07/02/25): Interval decrease in size of RLQ fluid collection, now 3.2 cm, with persistent ill-defined abscess and adjacent inflammatory fat stranding. * Prior CT (06/29/25): Terminal ileitis and cecal wall thickening with intramural edema, abscess 4.5 x 4.3 cm with smaller 2.9 x 1.5 cm extension near right adnexa (possible tubo-ovarian origin). No signs of acute appendicitis. * Pelvic US: Thick-walled hyperemic right adnexal collection corresponding to abscess; right ovary not well characterized; left ovary not visualized. * RUQ US: Homogeneous liver without focal lesions; no biliary dilatation; 0.5 cm nonobstructing right renal stone. * Clinical Status: Afebrile, vitals stable, pain resolving. * Discharge Plan: Home with PICC line for TPN and IV antibiotics, outpatient follow-up. Objective vital signs Vital Sign Date Time Temp Pulse Resp B/P (MAP) Pulse Ox O2 Delivery O2 Flow Rate FiO2 07/03/25 17:00 97.8 59 18 107/71 (83) 96 97.8 07/03/25 08:00 Room Air* 0 21 Total Intake and Output 07/02/25 07/02/25 07/03/25 15:00 23:00 07:00 Intake Total 580 ml 0 ml Balance 580 ml 0 ml medications Current Medications Medications Dose Ordered Sig/Heather Route Start Time Stop Time Status Last Admin Dose Admin Piperacillin Sod/ Tazobactam Sod 100 ml @ 25 mls/hr Q8HR IV 06/29/25 14:00 07/03/25 13:48 25 MLS/HR Pantoprazole Sodium 40 mg DAILY IV 06/30/25 10:00 07/03/25 10:20 40 MG Enoxaparin Sodium 30 mg DAILY SC 06/30/25 10:00 07/03/25 10:20 30 MG Acetaminophen 650 mg Q4HP PRN PO 07/01/25 09:00 07/01/25 22:20 650 MG Amino Acids 0 ml @ 0 mls/hr PER PHARMACY IV 07/02/25 23:45 Sodium Chloride 10 ml QSHIFT@10,22 IV 07/03/25 22:00 Diagnostic Test (Pha) 1 strip Q6HR 07/04/25 00:00 Insulin Human Regular FOLLOW SLIDING SCALE Q6HR SC 07/04/25 00:00 Dextrose 50 ml UD IV 07/04/25 00:00 Fat Emulsion Intravenous 50 ml/ Potassium Chloride 20 meq/ Multivitamins 10 ml/Chromium/ Copper/Manganese/ Zinc 1 ml/Amino Acids/Dextrose/ Purified Water 1,071 ml @ 45 mls/hr [id number] IV 07/03/25 22:00 07/04/25 21:59 Amino Acids 0 ml @ 0 mls/hr PER PHARMACY IV 07/03/25 16:30 UNV Examination * General: Alert, oriented, no distress. * Abdomen: Soft, mild RLQ tenderness, no rebound, no guarding, non-distended. Bowel sounds present. * Skin: No jaundice. * Other: Unremarkable. laboratory and microbiology Laboratory Tests 07/03/25 05:15 07/02/25 06:15 Test 07/03/25 05:15 Range/Units Serum Glucose 80 74-106 mg/dL Microbiology Date/Time Source Procedure Growth Status 06/29/25 05:48 Blood Blood Culture - Preliminary NO GROWTH AFTER 72 HOURS OF INCUBATION. Resulted 06/29/25 03:45 Voided Urine Urine Culture - Final Complete Problem List/Assessment/Plan Problem List/Assessment/Plan Assessment 1. Pericecal abscess (~3.2 cm) with adjacent inflammatory fat stranding persistent but improving, non-drainable by IR. 2. Terminal ileitis and cecal wall thickening etiology likely infectious/abscess-related rather than IBD (IBD panel and colonoscopy negative). 3. Possible appendicitis vs diverticulitis with abscess imaging suggests chronic inflammatory changes, appendicitis less likely. 4. Tubo-ovarian abscess not ruled out completely, but imaging favors pericecal origin. 5. Hepatic steatosis with mild LFT elevation. 6. Malnutrition with poor oral intake on TPN. 7. Nonobstructing right renal stone (incidental finding). Plan GI Specific 1. Intra-abdominal Abscess / Infection * Continue IV Piperacillin-Tazobactam (Zosyn) via PICC for a total of 3 weeks. * Monitor for any allergic reaction given history of mild penicillin allergy. * Repeat imaging in 3 weeks to document resolution. * Multidisciplinary follow-up with Infectious Disease and GI. GI outpatient follow in 2-3 weeks post discharge. 2. Nutrition Support * Continue NPO * Maintain TPN (Clinimix with lipids) via PICC; monitor electrolytes, liver enzymes, triglycerides. * Transition to enteral feeds as tolerated after repeat evaluation. 3. Hepatic Steatosis * LFTs consistent with steatosis; monitor periodically. * Avoid hepatotoxic medications. 4. Monitoring * Daily abdominal exam and labs (CBC, CMP, CRP). * Monitor for signs of worsening infection or sepsis. * Monitor urine/blood cultures (currently negative). 5. Supportive / Prophylaxis * Pain control: Acetaminophen PO PRN. * GI prophylaxis: Pantoprazole IV daily. 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
[2025-07-03] MEDS ORDERED: TPN PER PHARMACY IV NR (22:00)
[2025-07-03] MEDS: TPN PER PHARMACY IV NR (22:32)
[2025-07-03] MEDS: SODIUM CHLOR 0.9% PF (SALINE LOCK) 10ML VIAL/SYR IV SCH (22:37)
[2025-07-04] MEDS: ACCU-CHEK COMFORT CURVE STRIP VI SCH
[2025-07-04] MEDS ORDERED: DEXTROSE (50%) 50ML SYRG IV SCH
[2025-07-04] MEDS: InsuLIN REG 1unit/0.01ml Soln (100units/ml) SC SCH (01:59)
[2025-07-04 05:00] VITALS: BP 100/62; PULSE 59; RESP 18; TEMP 97.8; O2SAT 96
[2025-07-04 06:37] LABS: Albumin 3.8 g/dL (3.2-4.8); Anion Gap 8 (5-15); BUN/Creatinine Ratio 16.0 (10.0-20.0); Blood Urea Nitrogen 13 mg/dL (9-23); Calcium 9.0 mg/dL (8.7-10.4); Carbon Dioxide 28 mmol/L (20-31); Chloride 103 mmol/L (98-107); Magnesium 2.3 mg/dL (1.6-2.6); Sodium 139 mmol/L (136-145); Total Protein 6.6 g/dL (5.7-8.2)
[2025-07-04 06:38] LABS: Bilirubin, Total 0.5 mg/dL (0.2-1.0)
[2025-07-04 06:44] LABS: Alanine Aminotransferase 66 U/L (7-40); Alkaline Phosphatase 144 U/L (46-116); Glucose 125 mg/dL (74-106); Potassium 3.4 mmol/L (3.5-5.1)
[2025-07-04 08:00] VITALS: O2SAT 98
[2025-07-04 09:00] VITALS: BP 113/80; PULSE 59; RESP 18; TEMP 98.5; O2SAT 97
[2025-07-04 13:00] VITALS: BP 118/58; PULSE 61; RESP 18; TEMP 98.2; O2SAT 96
[2025-07-04] MEDS: POTASSIUM CHL 20MEQ/100ML 100 ML IV ONE (13:06)
[2025-07-04] MEDS ORDERED: IBUP-1454 PO (13:20)
--- NOTE | 2025-07-04 13:21 | DVHDS2 ---
Discharge Summary Date of Admission Jun 29, 2025 at 09:17 Date of Discharge: Jul 04, 2025 Labs/Diagnostic Data: Laboratory Results Test 07/04/25 05:30 07/03/25 05:15 07/02/25 06:15 07/01/25 12:09 Sodium Level 139 mmol/L (136-145) Potassium Level 3.4 mmol/L (3.5-5.1) Chloride Level 103 mmol/L (98-107) Carbon Dioxide Level 28 mmol/L (20-31) Anion Gap 8 (5-15) Blood Urea Nitrogen 13 mg/dL (9-23) Creatinine 0.81 mg/dL (0.550-1.02) Glomerular Filtration Rate Calc 84 mL/min (>90) BUN/Creatinine Ratio 16.0 (10.0-20.0) Serum Glucose 125 mg/dL (74-106) POC Glucose 129 mg/dl (70-106) Calcium Level 9.0 mg/dL (8.7-10.4) Phosphorus Level 4.2 mg/dL (2.4-5.1) Magnesium Level 2.3 mg/dL (1.6-2.6) Total Bilirubin 0.5 mg/dL (0.2-1.0) Aspartate Amino Transferase (AST) 22 U/L (13-40) Alanine Aminotransferase (ALT) 66 U/L (7-40) Alkaline Phosphatase 144 U/L (46-116) Total Protein 6.6 g/dL (5.7-8.2) Albumin 3.8 g/dL (3.2-4.8) Triglycerides Level 221 mg/dL (< 150) Eosinophils (%) (Auto) 0.1 % (0.0-7.0) Eosinophils # (Auto) 0 10 ^3/uL (0-0.8) Basophils # (Auto) 0 10 ^3/uL (0-0.2) Nucleated Red Blood Cells 0.1 % Prothrombin Time 11.2 sec (9.3-11.8) Prothrombin Time INR 1.06 (0.9-1.15) Activated Partial Thromboplast Time 25.1 SEC (24.5-34.5) Erythrocyte Sedimentation Rate 37 mm/hr (0-20) C-Reactive Protein High Sensitivity 6.84 mg/dL (<1.0) Test 06/29/25 09:52 06/29/25 05:48 06/29/25 04:04 06/29/25 03:45 Atypical p-ANCA <1:20 titer (Neg:<1:20) Saccharomyces cerevisiae IgG Ab <20.0 Units (0.0-24.9) Saccharomyces cerevisiae IgA Ab <20.0 Units (0.0-24.9) Lactic Acid Level 0.9 mmol/L (0.4-2.0) Hemoglobin A1c 5.5 % A1C (<5.7) B-Type Natriuretic Peptide 22.95 pg/mL (0-100) Lipase 41 U/L (12-53) Thyroid Stimulating Hormone (TSH) 3.68 uIU/mL (0.55-4.78) Urine Color Light-orange (Yellow) Urine Clarity Ex.turbid (Clear) Urine pH 6.0 (5.0-9.0) Urine Specific [place] 1.024 (1.001-1.035) Urine Protein 1+ (Negative) Urine Ketones 1+ (Negative) Urine Blood 1+ /uL (Negative) Urine Nitrite Negative (Negative) Urine Bilirubin Negative (Negative) Urine Urobilinogen 2 mg/dL (Negative) Urine Leukocyte Esterase 3+ /uL (Negative) Urine RBC 26 /hpf (0 - 4) Urine Microscopic WBC 239 /HPF (0-5) Urine Squamous Epithelial Cells Many /hpf (<5) Urine Bacteria Few /hpf (None Seen) Urine Hyaline Casts Few /lpf (0 - 2) Urine Mucus Moderate (None Seen) Urine Glucose Normal mg/dL (Normal) Other Laboratory Tests 07/04/25 05:30 Brief Hx & Hospital Course: Patient is 59-year-old female with past medical history of gastritis, ovarian cyst, benign colon polyps came to the hospital with a chief complaint of worsening right lower quadrant abdominal pain, onset on May 14, mainly radiating to generalized abdomen, associated with chronic constipation, associated with fever and chills, denied nausea or vomiting or diarrhea. No any recent travel, never experienced similar kind of pain before. Patient also complaining of dark urine, loss of appetite and increased sleepiness/fatigue. Abdominal pain is 5/10, mainly located in right lower quadrant, also generalized to left-sided. Patient underwent upper GI endoscopy and colonoscopy in 2021, was diagnosed with gastritis and benign colon polyp advised to follow up in 3-5 years. Patient denied any other symptoms including chest pain, shortness of breath, dizziness, muscular weakness, sensory deficits. No any other new complaints. She is admitted and evaluated by general surgery, elephant tamer, OBGYN and Infectious Disease consultants. Essentially patient noted to have a right lower quadrant abscess. The etiology is unclear. Initially felt she may have inflammatory bowel disease versus ovarian cyst that could be causing these issues. Therefore she is seen by appropriate consultants. Her serology for inflammatory bowel disease came back negative. Patient is recommended supportive care and treatment with the empiric IV antibiotics. General surgery recommended NPO/clear liquid diet for few weeks and IV nutrition. Therefore PICC line is placed and started on IV TPN for three weeks. Infectious Disease also recommended to continue IV antibiotics for three weeks as well. Subsequently social psychologist are involved and they are able to arrange these at home and given patient symptoms have improved and follow up CT showing improvement in her abscess it is felt she could be safely discharged home. However she is advised to have a close follow up with the infectious disease physician and general surgeon after three weeks to have further evaluations including the repeat CT of the abdomen and pelvis to make sure the abscess has resolved. I have talked with the patient on multiple occasions during this hospitalization regarding hospital diagnosis, treatment she received, discharge medications, discharge instructions and follow-up plan of care. She has verbalized understanding of these and agree with the care plan as outlined. Operations or Procedures CT CT ABD PELVIS W CON-ORAL IV INDICATION: Follow up right lower quadrant abdominal fluid collection EXAM DATE: 07/02/2025 11:33 AM COMPARISON: US PELVIC on DOS: 06/30/25, CT CT AB PEL WITH IV CON ONLY on DOS: 06/29/25 RADIATION DOSE: CTDIvol: 6.72 mGy, DLP: 362.26 mGy*cm PROCEDURE: Helical CT images were obtained of the abdomen and pelvis with IV contrast Sagittal and coronal reconstructions are provided. ORAL CONTRAST: Yes ADDITIONAL IMAGES / REFORMATS: None All CT scans at this medical facility are performed using dose modulation techniques as appropriate to a performed exam including the following: Automated exposure control was utilized; adjustment of the MA and/or KV according to patient size; and use of iterative reconstruction technique. FINDINGS: LUNG BASE: Mild bibasilar atelectasis. LIVER: Normal. GALLBLADDER AND BILIARY TREE: No calcified gallstones. Normal caliber wall. No intra- or extrahepatic biliary ductal dilation. PANCREAS: Normal. SPLEEN: Normal. BOWEL: Interval decrease in size of the RLQ fluid collection with a 3.2 cm ill- definted fluid collection remaining and adjacent inflammatory fat stranding. No oral contrast extravasation visualized. ADRENALS: Normal. KIDNEYS AND URETER: Normal. BLADDER: Normal. REPRODUCTIVE ORGANS: Normal. LYMPH NODES:No lymphadenopathy. PERITONEUM: No ascites or free air. No other fluid collection. VESSELS: Scattered atherosclerotic calcifications are noted. RETROPERITONEUM: Normal. ABDOMINAL WALL: Normal. BONES: Scattered osseous degenerative changes are noted. IMPRESSION: Interval decrease in size of the RLQ fluid collection with a 3.2 cm ill-definted fluid collection remaining and adjacent inflammatory fat stranding. No oral contrast extravasation visualized. ATED BY: JEANNE LAUREN MD DICTATED DATE/TIME: 07/02/25 1220 Condition at Discharge: Stable Final Diagnosis/Problems List Right lower quadrant abscess/infection Problems List: (1) Intra-abdominal abscess Status: Acute (2) Non-specific colitis Status: Acute Discharge Disposition: Home with Health Services Discharge Instruct/Medications Diet: See Comment Diet comment: Ice chips and sips of water for 3 weeks then as tolerated Activity: No Restrictions, As Tolerated Follow Up/Referral: Dr. Isaias Novoa surgeon after 3 weeks to repeat a CT of the abdomen and pelvis with contrast follow up abscess. Follow up with Infectious Dr. Rodriguez after 3 weeks to remove PICC line and the stop antibiotics as well as TPN. Medications: Zosyn via PICC line as well as TPN via PICC line x3 weeks Scheduled PRN Ibuprofen (Ibuprofen), 1 TAB PO TID PRN Discharge Statement: "Patient was advised to return to the ER or call 911 if any headaches, dizziness, shortness of breath, chest pain, abdominal pain, bleeding, fevers, or worsening of medical condition. Patient was counseled about treatment plan, medications, possible side effects, patientverbalized understanding. All questions were answered to the best of my ability. This discharge took greater then 30 minutes in planning, reviewing documentation, counseling the patient, and discussing with other team members." ASSESSMENT ASSESSMENT Assessment Right lower quadrant abscess/infection Date of Service: Jul 04, 2025 Billing Provider: ROYAL WALKER MD Common Visit Codes: 39344-KBI/OBS DISCH DAY >30min ROYAL WALKER MD Jul 04, 2025 13:20
[2025-07-04 13:26] LABS: Hematocrit 40.0 % (36.0-46.0); Hemoglobin 13.6 g/dL (12.2-16.2); Mean Corpuscular Hemoglobin 29.9 pg (28.0-32.0); Mean Corpuscular Volume 88.1 fL (80.0-100.0); Nucleated Red Blood Cells % 0.1 %
--- NOTE | 2025-07-04 14:35 | DVHPN2 ---
Progress Note Date Seen: Jul 04, 2025 Resident Creating Document: RAMA DENIS RESIDENT Has the PT tested + for MRSA If YES, has PT been informed?: No Medical Necessity Reason Pt with a Central, PICC or Fol: No Subjective Review of Systems Brief Gist of Todays Progress, Treatment, Labs, Imaging, and Plan * Pain: NO MORE PAIN, NO SIGNIFICANT ABDOMINAL TENDERNESS IN THE RIGHT LOWER QUADRANT * Diet: NPO, on TPN . The patient will continue to receive TPN while on discharge and the patient will be on NPO on discharge. * Antibiotics: IV Piperacillin-Tazobactam (Zosyn), tolerated well. Patient will receive long-term antibiotics via a PICC line on discharge to home Clinical Status: Afebrile, vitals stable, pain resolving. * Discharge Plan: Home with PICC line for IV antibiotics, outpatient follow-up. The patient will receive TPN Objective vital signs Vital Sign Date Time Temp Pulse Resp B/P (MAP) Pulse Ox O2 Delivery O2 Flow Rate FiO2 07/04/25 13:00 98.2 61 18 118/58 (78) 96 98.2 07/03/25 20:00 Room Air* 0 21 Total Intake and Output 07/03/25 07/03/25 07/04/25 15:00 23:00 07:00 Intake Total 100 ml 100 ml Balance 100 ml 100 ml medications Current Medications Medications Dose Ordered Sig/Heather Route Start Time Stop Time Status Last Admin Dose Admin Piperacillin Sod/ Tazobactam Sod 100 ml @ 25 mls/hr Q8HR IV 06/29/25 14:00 07/04/25 06:08 25 MLS/HR Pantoprazole Sodium 40 mg DAILY IV 06/30/25 10:00 07/04/25 10:41 40 MG Enoxaparin Sodium 30 mg DAILY SC 06/30/25 10:00 07/04/25 10:42 30 MG Acetaminophen 650 mg Q4HP PRN PO 07/01/25 09:00 07/01/25 22:20 650 MG Amino Acids 0 ml @ 0 mls/hr PER PHARMACY IV 07/02/25 23:45 Sodium Chloride 10 ml QSHIFT@10,22 IV 07/03/25 22:00 07/04/25 10:41 10 ML Diagnostic Test (Pha) 1 strip Q6HR 07/04/25 00:00 07/04/25 12:00 1 STRIP Insulin Human Regular FOLLOW SLIDING SCALE Q6HR SC 07/04/25 00:00 07/04/25 12:00 4 UNITS Dextrose 50 ml UD IV 07/04/25 00:00 Examination General: Alert, oriented, no distress. * Abdomen: Soft, mild RLQ tenderness, no rebound, no guarding, non-distended. Bowel sounds present. * Skin: No jaundice. * Other: Unremarkable. laboratory and microbiology Laboratory Tests 07/04/25 05:30 Test 07/04/25 05:30 Range/Units Serum Glucose 125 H 74-106 mg/dL Microbiology Date/Time Source Procedure Growth Status 06/29/25 05:48 Blood Blood Culture - Final NO GROWTH AFTER 5 DAYS OF INCUBATION. Complete 06/29/25 03:45 Voided Urine Urine Culture - Final Complete Problem List/Assessment/Plan Problem List/Assessment/Plan Assessment 1. Pericecal abscess (~3.2 cm) with adjacent inflammatory fat stranding persistent but improving, non-drainable by IR. 2. Terminal ileitis and cecal wall thickening etiology likely infectious/abscess-related rather than IBD (IBD panel and colonoscopy negative). 3. Possible appendicitis vs diverticulitis with abscess imaging suggests chronic inflammatory changes, appendicitis less likely. 4. Tubo-ovarian abscess not ruled out completely, but imaging favors pericecal origin. 5. Hepatic steatosis with mild LFT elevation. 6. Malnutrition with poor oral intake on TPN. 7. Nonobstructing right renal stone (incidental finding). Plan GI Specific 1. Intra-abdominal Abscess / Infection * Continue IV Piperacillin-Tazobactam (Zosyn) via PICC for a total of 3 weeks. * Monitor for any allergic reaction given history of mild penicillin allergy. * Repeat imaging in 3 weeks to document resolution. FOLLOW-UP WITH GENERAL SURGEON * Multidisciplinary follow-up with Infectious Disease and GI GI outpatient follow in 2-3 weeks post discharge. 2. Nutrition Support * Continue NPO * Maintain TPN ; monitor electrolytes, liver enzymes, triglycerides. * Transition to enteral feeds as tolerated after repeat evaluation. 3. Hepatic Steatosis * LFTs consistent with steatosis; monitor periodically. GI outpatient follow in 2-3 weeks post discharge. * Avoid hepatotoxic medications. 4. Monitoring * Daily abdominal exam and labs (CBC, CMP, CRP). * Monitor for signs of worsening infection or sepsis. * Monitor urine/blood cultures (currently negative). 5. Supportive / Prophylaxis * Pain control: Acetaminophen PO PRN. * GI prophylaxis: Pantoprazole IV daily. Plan discussed with: Patient Dietary Evaluation Review Recommendations by RD: Protein Supplementation Comments: 1) Initiate Ensure High Protein qd 2) Advance to low-fiber diet when medically feasible 3) Encourage optimal PO intake 4) Follow-up with gastroenterology 5) Continue to monitor I&O, labs, and skin integrity Expected Outcomes/Goals: 1) appetite and labs to improve 2) GI symptoms to resolve 3) f/u in 3-5 days Reduced Tax Record Clerk Strength: Measurably reduced RAMA DENIS RESIDENT Jul 04, 2025 14:35
[2025-07-04 16:14] VITALS: TEMP 36.8
[2025-07-04] MEDS ORDERED: TPN PER PHARMACY IV NR (22:00)
--- NOTE | 2025-07-05 05:31 | DVHPN2 ---
Consult Progress Note Date Seen: Jul 04, 2025 Subjective Patient reports: Other (piccline in place , tolerating therapy and is unable to tolerate oral fluids or pills at this itme and havign normal bowel movements ) Objective vital signs Vital Sign Date Time Temp Pulse Resp B/P (MAP) Pulse Ox O2 Delivery O2 Flow Rate FiO2 07/04/25 16:14 36.8 07/04/25 13:00 61 18 118/58 (78) 96 07/04/25 08:00 Room Air* 0 21 medications Physical Exam: General: NAD Neck: Supple. No masses. HEENT: PERRL. Normal lids and conjunctiva. Moist mucous membranes. Oropharynx without lesions, exudates or excessive erythema. Normal appearance of the external aspects of the nose and ears. Heart: Regular rhythm, normal rate. No murmur. No lower extremity edema. Lungs: Normal respiratory effort. Clear to auscultation bilaterally. No wheezes. No crackles. Abdomen: Mild tenderness in left lower quadrant. Abdomen: Soft. Non-tender otherwise. Non-distended. No masses or abdominal hernia. Msk: No digital cyanosis. Normal strength and tone in all 4 limbs Skin: Warm and dry, no rashes. Neuro: Alert. No facial droop or slurred speech. Extra-ocular movements intact. Sensation intact to soft touch in all 4 limbs. Psych: Appropriate mood. Full affect. Oriented to person, place, time, and situation. laboratory and microbiology Laboratory Tests 07/04/25 05:30 Test 07/04/25 05:30 Range/Units Serum Glucose 125 H 74-106 mg/dL Problem List/Assessment/Plan Problems(with codes): (1) Intra-abdominal abscess (2) Non-specific colitis Problem List/Assessment/Plan ASSESSMENT AND PLAN: ID Problem List: \-- Crohn's disease \-- RLQ abscess/fluid collection \-- Cecal wall thickening/terminal ileitis \-- Ovarian cyst \-- Colon polyps \-- Gastritis Assessment This is a 59 y.o. female with a past medical history of Crohn's disease, gastritis, ovarian cyst, and colon polyps, who presents with right and left lower quadrant abdominal pain ongoing for the past 24 weeks. The pain is rated 5/10 and worsens in the left lower quadrant, radiating to the right. No associated nausea, vomiting, or diarrhea. She notes intermittent fevers and chills, but denies blood in stool during this encounter. On admission, patient was found to have an elevated WBC (18.4), with normal hemoglobin, platelets, creatinine, and BUN. Urinalysis showed significant pyuria with positive leukocyte esterase but negative nitrites; urine and blood cultures pending, no evidence of UTI. CT imaging demonstrated cecal wall thickening and terminal ileal inflammation with intramural edema, associated with a pericecal abscess (ill-defined fluid collection, ~3.2 cm) and ovarian cyst. No evidence of oral contrast extravasation. Pelvic ultrasound could not further characterize the findings. Repeat imaging confirmed persistent fluid collection with adjacent inflammatory changes. Patient is intolerant of oral intake and is on TPN. Her abdominal pain has improved over the last 24 hours. IR has evaluated and found the abscess is not amenable to percutaneous drainage. Infectious Disease and General Surgery recommend IV Zosyn and continued inpatient monitoring. Given her Crohns and the ambiguous origin of the abscess (cecal vs. ovarian), broad coverage for anaerobes is advised. Penicillin allergy (mild hives) is noted, but she is tolerating Zosyn. Outpatient follow-up in three weeks with repeat CT is planned to confirm resolution. 07/04: appears to be clinically improving , abscess is decreased shown on recent ct Plan: \-- Continue IV Zosyn (monitor reaction due to penicillin allergy), recommend picc line and 3 weeks continuous Zosyn with TPN. \-- Continue TPN; NPO until improved tolerance \-- Monitor abdominal pain, clinical stability, and laboratory markers \-- Repeat CT imaging in 3 weeks in ID clinic \-- Monitor urine/blood culture results \-- Stool studies (including blood, calprotectin) to differentiate Crohn's flare vs. infection \-- Screen for sexually transmitted infections as indicated (GC/chlamydia) \-- Multidisciplinary follow-up with Infectious Diseases and General Surgery Isolation Precautions: standard Plan discussed with: Other Dietary Evaluation Review Recommendations by RD: Protein Supplementation Comments: 1) Initiate Ensure High Protein qd 2) Advance to low-fiber diet when medically feasible 3) Encourage optimal PO intake 4) Follow-up with gastroenterology 5) Continue to monitor I&O, labs, and skin integrity Expected Outcomes/Goals: 1) appetite and labs to improve 2) GI symptoms to resolve 3) f/u in 3-5 days Reduced Airways Operations Specialist Strength: Measurably reduced OZZY,PROSPER N MD Jul 05, 2025 05:31
== END 2025-07-04 17:00 | disposition home or self-care (01) | DRG 871 ==
LOC: ER 03:32 → OVERFLOW 09:17 → EAST 23:30
PROVIDERS: ADMIT Hospitalist; ATTEND Hospitalist
PROC: 02HV33Z Insertion of Infusion Device into Superior Vena Cava, Percutaneous Approach (ICD-10-PCS; principal; 2025-07-03)
PROC: B548ZZA Ultrasonography of Superior Vena Cava, Guidance (ICD-10-PCS; 2025-07-03)
DX: A41.9 Sepsis, unspecified organism (principal); K35.33 Acute appendicitis with perforation, localized peritonitis, and gangrene, with abscess; N39.0 Urinary tract infection, site not specified; L02.211 Cutaneous abscess of abdominal wall; K50.00 Crohn's disease of small intestine without complications; E46 Unspecified protein-calorie malnutrition; N20.0 Calculus of kidney; K52.9 Noninfective gastroenteritis and colitis, unspecified; K29.70 Gastritis, unspecified, without bleeding; K63.5 Polyp of colon; K59.09 Other constipation; E86.0 Dehydration; K76.0 Fatty (change of) liver, not elsewhere classified; N70.93 Salpingitis and oophoritis, unspecified; Z88.0 Allergy status to penicillin; Z88.2 Allergy status to sulfonamides; Z98.891 History of uterine scar from previous surgery; Z83.3 Family history of diabetes mellitus; Z82.49 Family history of ischemic heart disease and other diseases of the circulatory system; Z86.0100 Personal history of colon polyps, unspecified; Z79.899 Other long term (current) drug therapy; Z68.24 Body mass index [BMI] 24.0-24.9, adult
CPT/HCPCS: 36415; 36569; 74177; 76705; 76830; 76856; 76937; 80048; 80053; 81001; 82962; 83036; 83605; 83690; 83735; 83880; 84100; 84443; 84478; 85025; 85610; 85652; 85730; 86141; 86256; 86671; 87040; 87086; G0378; J1815; J2470; J2543; J3480

== ENCOUNTER 2025-07-16 11:22 | Outpatient (CLI) | payer OTHER ==
[~2025-07-16 11:22] MED LIST changes: +IBUP-1454 PO; -PIRO20CA PO
[2025-07-16 11:45] LABS: Hematocrit 39.3 % (36.0-46.0); Hemoglobin 13.9 g/dL (12.2-16.2); Mean Corpuscular Hemoglobin 30.5 pg (28.0-32.0); Mean Corpuscular Volume 86.4 fL (80.0-100.0); Nucleated Red Blood Cells % 0.3 %
[2025-07-16 12:17] LABS: Urine Protein, UAD 1+ (Negative)
[2025-07-16 12:28] LABS: Alanine Aminotransferase 63 U/L (7-40); Albumin 4.7 g/dL (3.2-4.8); Alkaline Phosphatase 147 U/L (46-116); Anion Gap 11 (5-15); BUN/Creatinine Ratio 20.6 (10.0-20.0); Bilirubin, Total 0.8 mg/dL (0.2-1.0); Blood Urea Nitrogen 14 mg/dL (9-23); Calcium 9.4 mg/dL (8.7-10.4); Carbon Dioxide 28 mmol/L (20-31); Chloride 104 mmol/L (98-107); Cholesterol 123 mg/dL (< 200); Glucose 111 mg/dL (74-106); Potassium 3.0 mmol/L (3.5-5.1); Sodium 143 mmol/L (136-145); Total Protein 7.5 g/dL (5.7-8.2); Triglycerides 159 mg/dL (< 150)
[2025-07-16 12:29] LABS: HDL Cholesterol 17 mg/dL (40-59)
[2025-07-16 12:31] LABS: Free T4 (Free Thyroxine) 0.96 ng/dL (0.89-1.76)
[2025-07-17 15:07] LABS: Anti-Nuclear Antibody Direct Negative (Negative)
== END 2025-07-16 17:00 | disposition home or self-care (01) ==
LOC: LAB 11:22
PROVIDERS: ATTEND Student in an Organized Health Care Education/Training Program
DX: E53.8 Deficiency of other specified B group vitamins (principal); E55.9 Vitamin D deficiency, unspecified; J30.2 Other seasonal allergic rhinitis; R73.9 Hyperglycemia, unspecified; R03.0 Elevated blood-pressure reading, without diagnosis of hypertension; R19.7 Diarrhea, unspecified; R10.84 Generalized abdominal pain; M25.50 Pain in unspecified joint
CPT/HCPCS: 36415; 80053; 80061; 81001; 82306; 82607; 82785; 83036; 84439; 84443; 85025; 86003; 86038; 86431